=== PATIENT | female | born 1950 | race Hispanic/Latino ===

== ENCOUNTER 2017-12-17 16:25 | Emergency (ER) | payer OTHER ==
[~2017-12-17 16:25] MED LIST: ASPI-1197 PO; ATOR10TA69 PO; DILT240T13 PO; GLIM4TAB3 PO; LISI1TAB11 PO; METO100T14 PO; PANT40TA25 PO; SITA1TAB2 PO; calcium + D PO; isosorbide PO
[2017-12-17] MEDS ORDERED: ONDANSETRON ODT 4 MG TAB ONE (16:39)
[2017-12-17 17:05] LABS: BASOPHILS % (AUTO) 0.7 % (0.0-5.0); EOSINOPHILS % (AUTO) 2.1 % (0.0-8.0); HEMATOCRIT 40.5 % (36-48); LYMPHOCYTES % (AUTO) 21.2 % (21.0-51.0); MEAN CORPUSCULAR HEMOGLOBIN 30.6 pg (27.0-33.0); MEAN CORPUSCULAR HGB CONC 35.4 g/dL (32.0-36.0); MEAN CORPUSCULAR VOLUME 86.3 fL (79-99); MONOCYTES % (AUTO) 9.2 % (3.0-13.0); NEUTROPHILS % (AUTO) 66.8 % (40.0-77.0); NUCLEATED RED BLOOD CELLS 0.4 % (0.0-0.19); PLATELET COUNT (AUTO) 118 K/uL (130-400); RED BLOOD CELL COUNT(AUTO) 4.69 MIL/uL (4.00-5.50); RED CELL DISTRIBUTION WIDTH 13.2 % (11.0-15.5)
[2017-12-17 17:18] LABS: POTASSIUM 3.5 mmol/L (3.5-5.1)
[2017-12-17 17:24] LABS: ALBUMIN 3.5 g/dL (3.5-5.0); BILIRUBIN,TOTAL 0.6 mg/dL (0.2-1.0)
[2018-03-25] MEDS ORDERED: DULA1.5P SQ (08:32)
== END 2017-12-17 18:13 | disposition home or self-care (01) ==
LOC: EDH 16:25
DX: J10.1 Influenza due to other identified influenza virus with other respiratory manifestations (principal); R42 Dizziness and giddiness; E11.9 Type 2 diabetes mellitus without complications; I10 Essential (primary) hypertension; Z90.49 Acquired absence of other specified parts of digestive tract; Z90.710 Acquired absence of both cervix and uterus
CPT/HCPCS: 36415; 71045; 80053; 85025; 87804

== ENCOUNTER → 2018-02-06 | Outpatient (CLI) | payer OTHER ==
[~2018-02-06] MED LIST changes: +AMLO10TA2 PO; +DULA1.5P SQ; +METO-409 PO; +OLME1TAB42 PO; +TRAM50TA4 PO
== END | disposition home or self-care (01) ==
LOC: RAH 08:31
PROVIDERS: ATTEND Family Medicine
DX: R04.2 Hemoptysis (principal); R63.4 Abnormal weight loss; M47.895 Other spondylosis, thoracolumbar region
CPT/HCPCS: 71046

== ENCOUNTER → 2018-03-09 | Outpatient (CLI) | payer OTHER ==
[2018-03-09 11:52] LABS: CREATININE 0.7 mg/dL (0.5-1.5); POTASSIUM 4.1 mmol/L (3.5-5.1)
== END | disposition home or self-care (01) ==
LOC: LAB 11:05
PROVIDERS: ATTEND Family Medicine
DX: I11.9 Hypertensive heart disease without heart failure (principal)
CPT/HCPCS: 36415; 80048

== ENCOUNTER → 2018-03-11 | Outpatient (CLI) | payer OTHER ==
[~2018-03-11] MED LIST changes: +IOPAMIDOL-370 75 ML VIAL IV ONE
== END | disposition home or self-care (01) ==
LOC: OIH 07:52
PROVIDERS: ATTEND Family Medicine
DX: J84.10 Pulmonary fibrosis, unspecified (principal); R63.4 Abnormal weight loss; R04.2 Hemoptysis
CPT/HCPCS: 71260; Q9967

== ENCOUNTER → 2018-03-17 | Outpatient (CLI) | payer OTHER ==
[~2018-03-17] MED LIST changes: -IOPAMIDOL-370 75 ML VIAL IV ONE
== END | disposition home or self-care (01) ==
LOC: RAH 06:50
PROVIDERS: ATTEND Internal Medicine Gastroenterology
DX: R10.10 Upper abdominal pain, unspecified (principal); R63.4 Abnormal weight loss; Z90.49 Acquired absence of other specified parts of digestive tract
CPT/HCPCS: 76700

== ENCOUNTER 2018-03-25 07:34 | Day surgery (SDC) | payer OTHER ==
[~2018-03-25] VITALS: Ht 157.5 cm; Wt 56.3 kg
[~2018-03-25 07:34] MED LIST changes: -AMLO10TA2 PO; -DULA1.5P SQ; -METO-409 PO; -OLME1TAB42 PO; -TRAM50TA4 PO
[2018-03-25] MEDS ORDERED: METO-409 PO (08:26)
[2018-03-25] MEDS ORDERED: AMLO10TA2 PO (08:32)
[2018-03-25] MEDS ORDERED: OLME1TAB42 PO (08:32)
[2018-03-25] MEDS ORDERED: DULA1.5P SQ ×2 (08:32)
[2018-03-25] MEDS ORDERED: TRAM50TA4 PO (08:32)
== END 2018-03-25 09:50 | disposition home or self-care (01) ==
LOC: DAH 07:34 → ENDO 07:34
PROVIDERS: ATTEND Internal Medicine Gastroenterology
DX: K29.50 Unspecified chronic gastritis without bleeding (principal); K31.7 Polyp of stomach and duodenum; K31.9 Disease of stomach and duodenum, unspecified; K21.9 Gastro-esophageal reflux disease without esophagitis; E11.9 Type 2 diabetes mellitus without complications; I42.9 Cardiomyopathy, unspecified; I10 Essential (primary) hypertension; Z87.19 Personal history of other diseases of the digestive system; Z79.82 Long term (current) use of aspirin; Z79.899 Other long term (current) drug therapy
CPT/HCPCS: 43239; 43251; 43259; 82948 ×2; 88305; 88312; 93005; A4606; 43231

== ENCOUNTER 2018-10-13 07:55 | Day surgery (SDC) | payer OTHER ==
[2018-10-09 12:52] VITALS: BP 136/64
[2018-10-09 12:58] LABS: BASOPHILS % (AUTO) 0.5 % (0.0-5.0); EOSINOPHILS % (AUTO) 1.6 % (0.0-8.0); HEMATOCRIT 37.8 % (36-48); LYMPHOCYTES % (AUTO) 21.1 % (21.0-51.0); MEAN CORPUSCULAR HEMOGLOBIN 29.9 pg (27.0-33.0); MEAN CORPUSCULAR HGB CONC 35.5 g/dL (32.0-36.0); MEAN CORPUSCULAR VOLUME 84.2 fL (79-99); MONOCYTES % (AUTO) 5.8 % (3.0-13.0); NUCLEATED RED BLOOD CELLS 0.1 % (0.0-0.19); PLATELET COUNT (AUTO) 226 K/uL (130-400); RED BLOOD CELL COUNT(AUTO) 4.48 MIL/uL (4.00-5.50); RED CELL DISTRIBUTION WIDTH 14.4 % (11.0-15.5); WHITE BLOOD COUNT (AUTO) 5.9 K/uL (4.8-10.8)
[2018-10-09 13:06] LABS: APPEARANCE,URINE Clear (CLEAR); BILIRUBIN,URINE Negative (NEGATIVE); COLOR,URINE Yellow (YELLOW); GLUCOSE, URINE (UA) Negative (NEGATIVE); KETONES,URINE Negative (NEGATIVE); LEUKOCYTE ESTERASE ,URINE Moderate (NEGATIVE); NITRATE,URINE Negative (NEGATIVE); OCCULT BLOOD,URINE Negative (NEGATIVE); PROTEIN,URINE Negative (NEGATIVE); UROBILINOGEN,URINE 0.2 mg/dL (0.2-1.0)
[2018-10-09 13:12] LABS: CREATININE 0.9 mg/dL (0.5-1.5); POTASSIUM 3.5 mmol/L (3.5-5.1)
[2018-10-09 13:16] LABS: INR 0.95 (0.85-1.15); PARTIAL THROMBOPLASTIN TIME 27.5 SEC (26.3-35.5)
[2018-10-09 13:19] LABS: BACTERIA,URINE Few /HPF (None Seen); RBC,URINE 0-1 /HPF (0-1)
[2018-10-13] VITALS (10 sets, daily range): BP systolic 135–168; BP diastolic 50–71
[~2018-10-13] VITALS: Ht 154.9 cm; Wt 56.7 kg
[~2018-10-13 07:55] MED LIST changes: +AMLO10TA6 PO; -DILT240T13 PO; +DULA1.5P SQ; +DiphenhydrAMINE HCL 50 MG/ML VIAL IV SCH; -GLIM4TAB3 PO; +INSU100I21 SQ; -LISI1TAB11 PO; +METHYLPREDNISOLONE SOD SUCC 125MG/2ML VIAL IVP SCH; +METO-409 PO; -METO100T14 PO; +OLME1TAB44 PO; +RANO500T3 PO; -calcium + D PO; -isosorbide PO
[2018-10-13] MEDS ORDERED: SODIUM CHLORIDE 0.9% 1000ML 1,000 ML IV SCH ×2 (08:00→12:15)
[2018-10-13] MEDS ORDERED: SODIUM BICARB 50MEQ 50ML VIAL ONE (08:49)
[2018-10-13] MEDS ORDERED: LIDOCAINE HCL 2% 20ML ONE (08:50)
[2018-10-13] MEDS ORDERED: HEPARIN SODIUM 1000UNIT/ML 10ML VIAL ONE (08:50)
[2018-10-13] MEDS ORDERED: IOHEXOL 350 MG/ML 100ML INFUS..BTL IV ONE (08:50)
[2018-10-13] MEDS ORDERED: NITROGLYCERIN 5 MG/ML 10 ML VIAL IV ONE (08:50)
[2018-10-13] MEDS ORDERED: IOHEXOL-350 50ML VIAL IV ONE (08:50)
[2018-10-13] MEDS ORDERED: INSULIN HUMULIN R 100 UNIT/ML 3ML ONE (08:53)
[2018-10-13] MEDS ORDERED: INSULIN HUMULIN R 100 UNIT/ML 3ML SQ SCH ×2 (11:30→16:30)
[2018-10-13] MEDS ORDERED: MEPERIDINE-PF 25 MG/ML SYG ONE (11:44)
[2018-10-13] MEDS ORDERED: MIDAZOLAM HCL 1 MG/ML 2ML VIAL ONE (11:45)
[2018-10-13] MEDS ORDERED: GLUCAGON 1MG KIT 1 MG ML IM PRN (12:15)
[2018-10-13] MEDS ORDERED: ACETAMINOPHEN-CODEINE 300/30MG TAB PO PRN ×2 (12:15)
[2018-10-13] MEDS ORDERED: DEXTROSE 50%-WATER 50 ML DISP.SYRIN IV PRN (12:15)
== END 2018-10-13 17:30 | disposition home or self-care (01) ==
LOC: DAH 07:55
PROVIDERS: ATTEND Internal Medicine Cardiovascular Disease
DX: I25.118 Atherosclerotic heart disease of native coronary artery with other forms of angina pectoris (principal); I42.9 Cardiomyopathy, unspecified; Z88.8 Allergy status to other drugs, medicaments and biological substances; E11.51 Type 2 diabetes mellitus with diabetic peripheral angiopathy without gangrene; K21.9 Gastro-esophageal reflux disease without esophagitis; I10 Essential (primary) hypertension; Z79.899 Other long term (current) drug therapy; Z79.84 Long term (current) use of oral hypoglycemic drugs; E78.5 Hyperlipidemia, unspecified; Z90.710 Acquired absence of both cervix and uterus; Z90.49 Acquired absence of other specified parts of digestive tract; I21.3 ST elevation (STEMI) myocardial infarction of unspecified site
CPT/HCPCS: 36415; 71045; 80048; 81001; 82948 ×3; 85025; 85610; 85730; 93005; 93458; A4606; C1760; C1894 ×2; J1200; J1644; J1815; J2175; J2250; J2930; J3490 ×3; J7030; Q9965; Q9967 ×2; 99156; 99157

== ENCOUNTER → 2020-01-26 | Outpatient (CLI) | payer OTHER ==
[~2020-01-26] MED LIST changes: -AMLO10TA6 PO; +AMLO10TA7 PO; +DOXY100C2 PO; -DiphenhydrAMINE HCL 50 MG/ML VIAL IV SCH; +LOSA25TA41 PO; +LOSA50TA64 PO; -METHYLPREDNISOLONE SOD SUCC 125MG/2ML VIAL IVP SCH; -OLME1TAB44 PO; +OLME1TAB86 PO; +ONDA4TAB10 PO; +POLY17PO4 PO; +TIZA4TAB5 PO; +TRAM50TA4 PO
== END | disposition home or self-care (01) ==
LOC: SHCH 12:30
PROVIDERS: ATTEND Internal Medicine Cardiovascular Disease
DX: I72.4 Aneurysm of artery of lower extremity (principal)
CPT/HCPCS: 76936

== ENCOUNTER 2020-04-18 12:21 | Emergency (ER) | payer OTHER | END 2020-04-18 12:33 | disposition left against medical advice (07) | LOC: EDH 12:21 | DX: R06.02 Shortness of breath (principal); M19.90 Unspecified osteoarthritis, unspecified site; J45.909 Unspecified asthma, uncomplicated; E11.9 Type 2 diabetes mellitus without complications; K21.9 Gastro-esophageal reflux disease without esophagitis; E78.5 Hyperlipidemia, unspecified; Z72.0 Tobacco use; Z91.041 Radiographic dye allergy status ==

== ENCOUNTER 2020-06-27 22:23 | Inpatient (IN) | payer OTHER ==
[~2020-06-27] VITALS: Ht 152.4 cm; Wt 54.5 kg
[~2020-06-27 22:23] MED LIST changes: -DEXA6TAB PO
[2020-06-27 22:48] LABS: ABG BASE EXCESS -10.7 mmol/L (-2.0-3.0); ABG HCO3 18.5 mmol/L (21.0-28.0); ABG OXYGEN SATURATION 94.4 % (95.0-99.0); ABG PCO2 54 mmHg (32-45)
[2020-06-27 23:04] LABS: BASOPHILS % (AUTO) 0.1 % (0.0-5.0); HEMATOCRIT 32.7 % (36-48); LYMPHOCYTES % (AUTO) 7.4 % (21.0-51.0); MONOCYTES % (AUTO) 0.9 % (3.0-13.0); NEUTROPHILS % (AUTO) 90.9 % (40.0-77.0); NUCLEATED RED BLOOD CELLS 0.2 % (0.0-0.19); PLATELET COUNT (AUTO) 333 K/uL (130-400); RED BLOOD CELL COUNT(AUTO) 3.48 MIL/uL (4.00-5.50); RED CELL DISTRIBUTION WIDTH 16.3 % (11.0-15.5); WHITE BLOOD COUNT (AUTO) 12.9 K/uL (4.8-10.8)
[2020-06-27 23:16] LABS: INR 0.99 (0.85-1.15); PARTIAL THROMBOPLASTIN TIME 24.8 SEC (26.3-35.5); PROTHROMBIN TIME 10.7 SEC (9.6-11.6)
[2020-06-27 23:21] LABS: ALBUMIN 3.2 g/dL (3.5-5.0); BILIRUBIN,TOTAL 0.4 mg/dL (0.2-1.0); CREATININE 1.5 mg/dL (0.5-1.5); POTASSIUM 4.9 mmol/L (3.5-5.1); TOTAL PROTEIN, SERUM 6.5 g/dL (6.0-8.3)
[2020-06-28] VITALS (7 sets, daily range): BP systolic 127–183; BP diastolic 52–115
[2020-06-28] MEDS ORDERED: GUAIFENESIN-DM 200/20 MG 10 ML PO PRN (03:45)
[2020-06-28] MEDS ORDERED: MAGNESIUM 2GM PREMIX 50ML 50 ML IV PRN (03:45)
[2020-06-28] MEDS ORDERED: DIPHENHYDRAMINE HCL 25 MG CAPSULE PO PRN (03:45)
[2020-06-28] MEDS: METHYLPREDNISOLONE SOD SUCC 125MG/2ML VIAL IV SCH ×3 (03:45→21:38)
[2020-06-28] MEDS ORDERED: MAG HYDROX/AL HYDROX/SIMETH ES 30 ML SUSP UDCUP PO PRN (03:45)
[2020-06-28] MEDS ORDERED: DiphenhydrAMINE HCL 50 MG/ML VIAL IV PRN (03:45)
[2020-06-28] MEDS ORDERED: DEXTROSE 50%-WATER 50 ML DISP.SYRIN IV PRN (03:45)
[2020-06-28] MEDS ORDERED: ONDANSETRON HCL 4 MG/2 ML VIAL IV PRN (03:45)
[2020-06-28] MEDS ORDERED: MORPHINE SULFATE 4 MG/1ML SYG IV PRN (03:45)
[2020-06-28] MEDS ORDERED: POTASSIUM CHLORIDE 10% ELIXIR 20 MEQ/15 ML UDCUP PO PRN (03:45)
[2020-06-28] MEDS ORDERED: LACTULOSE 20 GM/30 ML UDCUP PO PRN (03:45)
[2020-06-28] MEDS ORDERED: AZITHROMYCIN 500MG+NS 250ML 250 ML IV SCH (03:45)
[2020-06-28] MEDS ORDERED: ACETAMINOPHEN 325 MG TAB PO PRN ×2 (03:45)
[2020-06-28] MEDS ORDERED: POTASSIUM CHLORIDE 20MEQ/100ML 100 ML IV PRN (03:45)
[2020-06-28] MEDS ORDERED: FUROSEMIDE 10 MG/ML 4ML VIAL IVP PRN (03:45)
[2020-06-28] MEDS ORDERED: ACETAMINOPHEN-CODEINE 300/30MG TAB PO PRN (03:45)
[2020-06-28] MEDS ORDERED: LIDOCAINE HCL-MPF 1% 2ML VIAL IV PRN (03:45)
[2020-06-28] MEDS ORDERED: NITROGLYCERIN 0.4 MG SL TAB SL PRN (03:45)
[2020-06-28] MEDS ORDERED: MORPHINE SULFATE 2 MG/ML 1ML SYG IV PRN (03:45)
[2020-06-28] MEDS ORDERED: GLUCAGON 1MG KIT 1 MG ML IM PRN (03:45)
[2020-06-28] MEDS ORDERED: ALBUTEROL SULFATE 0.083% 2.5 MG/3 ML INH IH SCH (06:00)
[2020-06-28] MEDS ORDERED: IPRATROPIUM 0.5 MG/2.5 ML INH IH SCH (06:00)
[2020-06-28] MEDS: SODIUM CHLORIDE 0.9% 1000ML 1,000 ML IV SCH ×2 (06:00→23:45)
[2020-06-28] MEDS: INSULIN HUMULIN R 100 UNIT/ML 3ML SQ SCH ×5 (06:51→21:00)
--- NOTE | 2020-06-28 07:10 | NUR ---
PT RECEIVED LYING IN BED WITH INCREASED ANXIETY, TACHYPNEIC, BELLYING BREATHING. VERBALIZING "I CAN'T BREATHE WITH THIS THING (BI-PAP) ON MY FACE. I WANT TO TAKE IT OFF." THE RISK VERSUS BENEFITS OF BI-PAP USE EXPLAINED TO PATIENT. PATIENT STATED, "I JUST WANT TO TAKE IT OFF AND GO HOME. I DON'T WANT TO BE HERE. I FEEL BETTER NOW." O2 SAT 100% ON 60% BI-PAP, HEART RATE 116. REASSURED PATIENT, SOOTHING TALK AND HAND MASSAGE USED TO DECREASE PT'S ANXIETY AT THIS TIME. WILL CONTINUE TO MONITOR. SAFETY MEASURES IN PLACE. Addendum: 06/28/20 at 1433 by ANGEL JACOBSON RN RN Amended: Links added.
--- NOTE | 2020-06-28 07:42 | NUR ---
PT CONTINUED TO REQUEST REMOVAL OF BI-PAP AND TO BE DISCHARGED HOME. RISK OF REMOVAL OR REFUSAL OF TREATMENT REINFORCED WITH PATIENT. PT STATED, "I STILL WOULD LIKE TO GO HOME. I FEEL OKAY NOW. I WILL STAY HERE FOR NOW." WILL CONTINUE TO MONITOR.
--- NOTE | 2020-06-28 08:45 | NUR ---
PT NOTED WITH SOB AT REST, CRYING, COMPLAINS OF "HURTING, BUT MORE SO UNCOMFORTABLE." SBP 180's. MORPHINE 2 MG ADMINISTERED SLOW IVP. PATIENT CONTINUES REQUESTING TO GO HOME. DISEASE PROCESS EXPLAINED TO PATIENT IN DETAIL. NURSE ASKED PATIENT HER WISHES IF PATIENT'S HEART WAS TO STOP BEATING OR IF PATIENT WAS TO STOP BREATHING. PATIENT STATED, "I DON'T WANT ANYTHING DONE FOR ME. I JUST WANT TO GO HOME." NURSE ASKED PATIENT IF SHE WOULD LIKE TO SIGN A DO NOT RESUSCITATE FORM. PATIENT STATED, "NO, I JUST WANT TO GO HOME." PT'S DAUGHTER, KHOI TOBIAS, CALLED PATIENT'S CELLPHONE WHILE NURSE AT BEDSIDE. NURSE INFORMED KHOI OF PATIENT'S CURRENT CONDITION WITH PATIENT'S PERMISSION AND STRONGLY ADVISED KHOI THAT A LENGTHY PHONE CONVERSATION WAS NOT IN THE BEST INTEREST OF THE PATIENT'S CONDITION. PATIENT CONTINUED TALKING TO DAUGHTER VIA PHONE. WILL CONTINUE TO MONITOR. SAFETY MEASURES IN PLACE.
[2020-06-28] MEDS ORDERED: ENOXAPARIN SODIUM 40 MG/0.4 ML SYRINGE SQ SCH (09:00)
[2020-06-28] MEDS ORDERED: CEFTRIAXONE SODIUM 500 MG VIAL IV SCH (09:00)
[2020-06-28] MEDS ORDERED: CEFTRIAXONE SODIUM 1 GM IV SCH ×2 (09:57→11:30)
[2020-06-28] MEDS: FAMOTIDINE 20MG TAB 20 MG TAB PO SCH (10:00)
[2020-06-28] MEDS ORDERED: IPRATROPIUM/ALBUTEROL SULFATE 3 ML SOLUTION IH SCH (14:00)
[2020-06-28] MEDS: ALBUTEROL INHALER 90MCG/INH IH SCH ×2 (14:47→17:51)
[2020-06-28] MEDS: LEVOFLOXACIN 500 MG/D5W 100 ML 100 ML IV SCH (14:47)
[2020-06-28 16:57] LABS: TROPONIN I 2.03 ng/mL (0.00-0.06)
--- NOTE | 2020-06-28 17:01 | NUR ---
PATIENT'S TROPONIN 2.03, ERIN HODGE NP NOTIFIED VIA. NEW ORDERS RECEIVED: 12 LEAD EKG, CONSULT HEART CLINIC, 2D ECHO.
[2020-06-28 17:39] LABS: CREATININE 1.2 mg/dL (0.5-1.5)
--- NOTE | 2020-06-28 17:45 | NUR ---
ERIN HODGE NP NOTIFIED OF PT's ABG RESULTS. NEW ORDER RECEIVED: GIVE 2 AMPS BICARB IVP PUSH.
[2020-06-28 17:46] LABS: ABG BASE EXCESS -11.7 mmol/L (-2.0-3.0); ABG HCO3 16.2 mmol/L (21.0-28.0); ABG OXYGEN SATURATION 96.5 % (95.0-99.0); ABG PCO2 44 mmHg (32-45)
[2020-06-28] MEDS: ZOSYN 3.375GM+NS 50ML 50 ML IV SCH (17:50)
--- NOTE | 2020-06-28 18:20 | NUR ---
ERIN HODGE, TECHNICIAN INVENTORY SPECIALIST NOTIFIED OF PT's EKG RESULTS, STATED, "THAT'S DECENT ENOUGH. PLEASE MAKE SURE SHE GETS THE INHALERS, AND I'M GOING TO PUT HER ON BICARB TABLETS."
--- NOTE | 2020-06-28 18:46 | NUR ---
PROVIDER, ROLO HODGE NOTIFIED OF PT'S BLOOD PRESSURE AND HEART RATE, NEW ORDER FOR METOPROLOL 50 MG BID.
[2020-06-28] MEDS ORDERED: SODIUM BICARB 50MEQ 50ML VIAL IV SCH (19:15)
[2020-06-28] MEDS ORDERED: METOPROLOL TARTRATE 50 MG TAB PO SCH ×2 (20:00→21:00)
--- NOTE | 2020-06-28 20:40 | NUR ---
SPoke to DR. Rahul Zapata regarding new consult. NEw orders were placed. Informed him regarding of elevated troponin and that patient sees Dr Love for congestive heart failure
[2020-06-28] MEDS: ENOXAPARIN SODIUM 60 MG/0.6 ML SQ SCH ×2 (21:00→22:44)
[2020-06-28] MEDS: NITROGLYCERIN 1GM/1 INCH PACKET TD SCH (21:37)
[2020-06-28] MEDS: ZOLPIDEM TARTRATE 5 MG TAB PO PRN (21:37)
[2020-06-28] MEDS: METOPROLOL TARTRATE 50 MG TAB PO SCH (21:38)
[2020-06-28] MEDS: SODIUM BICARBONATE 650 MG TAB PO SCH (21:38)
[2020-06-28] MEDS: INSULIN GLARGINE 100 UNITS/ML 10 ML VIAL SQ SCH (21:42)
[2020-06-28] MEDS ORDERED: ASPIRIN 81MG TAB.CHEW PO SCH (21:45)
--- NOTE | 2020-06-28 22:00 | NUR ---
Troponin level of 2.45 similar to previous result. Mattress Stripper MD Rahul Zapata is aware.
[2020-06-28 22:50] LABS: TROPONIN I 2.45 ng/mL (0.00-0.06)
[2020-06-29] MEDS: ALBUTEROL INHALER 90MCG/INH IH SCH ×4 (00:13→18:28)
[2020-06-29] MEDS: NITROGLYCERIN 1GM/1 INCH PACKET TD SCH ×5 (01:00→18:28)
[2020-06-29 03:37] VITALS: BP 165/93
[2020-06-29] MEDS: METHYLPREDNISOLONE SOD SUCC 125MG/2ML VIAL IV SCH ×3 (05:19→20:14)
[2020-06-29] MEDS: ZOSYN 3.375GM+NS 50ML 50 ML IV SCH ×2 (05:19→17:02)
[2020-06-29 05:53] LABS: CREATINE KINASE, TOTAL 122 U/L (21-232); MYOGLOBIN 92 ng/mL (10-92); PHOSPHORUS 4.1 mg/dL (2.5-4.9)
[2020-06-29 06:03] LABS: TROPONIN I 3.32 ng/mL (0.00-0.06)
[2020-06-29] MEDS: INSULIN HUMULIN R 100 UNIT/ML 3ML SQ SCH ×4 (06:21→22:05)
--- NOTE | 2020-06-29 06:22 | NUR ---
Paged Dr. Zapata regarding troponin lab results. Pending call back
[2020-06-29 08:00] VITALS: BP 163/88
[2020-06-29 08:30] LABS: ABG BASE EXCESS 2.7 mmol/L (-2.0-3.0); ABG HCO3 27.3 mmol/L (21.0-28.0); ABG PCO2 42 mmHg (32-45)
[2020-06-29] MEDS ORDERED: CEFTRIAXONE SODIUM 1 GM IV SCH (09:00)
--- NOTE | 2020-06-29 09:06 | NUR ---
CHART CHECK COMPLETED. Pt IS A 69 Y.O. FEMALE ADMITTED SECONDARY TO COPD EXACERBATION, HYPOXIA. Pt HAS A PAST MEDICAL HISTORY SIGNIFICANT FOR BREAST CA ON CHEMO, HTN, DM, RENAL INSUFFICIENCY, METABOLIC RESPIRATORY ACIDOSIS, IMMUNOCOMPROMISED STATUS, HISTORY OF COVID 2 MONTHS AGO, LUPUS, DEMENTIA, RA. Pt CURRENTLY ON REGULAR TEXTURE,THIN LIQUID DIET (CONSISTENT CARB). Pt CURRENTLY ON NON-REBREATHER. PLEASE REQUEST FORMAL SKILLED SPEECH/SWALLOW EVALUATION IF Pt PRESENTS WITH +S/S OF ASPIRATION SUCH COUGH RESPONSE, THROAT CLEAR, OR WET VOCAL QUALITY DURING P.O. PLEASE CONSIDER NPO IF RESPIRATORY STATUS DECLINES. Addendum: 06/29/20 at 0914 by DAR CULLEN, [facility] Amended: Links added.
[2020-06-29] MEDS: METOPROLOL TARTRATE 50 MG TAB PO SCH ×2 (09:47→22:06)
[2020-06-29] MEDS: FAMOTIDINE 20MG TAB 20 MG TAB PO SCH (09:47)
[2020-06-29] MEDS: SODIUM BICARBONATE 650 MG TAB PO SCH ×3 (09:47→22:06)
[2020-06-29] MEDS: LISINOPRIL 10 MG TABLET PO SCH (09:47)
[2020-06-29] MEDS: ENOXAPARIN SODIUM 60 MG/0.6 ML SQ SCH ×2 (09:48→22:06)
--- NOTE | 2020-06-29 10:11 | NUR ---
PT RECEIVED LYING IN BED TACHYPNEIC, BELLYING BREATHING, SOB, COARSE SOUNDING. O2 SAT 95 ON 15L VENTI-MASK, HEART RATE 121. ERIN HODGE NP ROUNDING AND UPDATED ON PT'S STATUS AND INCREASING TROPONIN, NEW ORDER RECEIVED FOR LASIX 40 IVP X1. WILL CONTINUE TO MONITOR. SAFETY MEASURES IN PLACE.
[2020-06-29] MEDS ORDERED: FUROSEMIDE 10 MG/ML 4ML VIAL IV SCH (10:15)
[2020-06-29 10:26] LABS: ALANINE AMINOTRANSFERASE 32 U/L (12-78); ALBUMIN 3.1 g/dL (3.5-5.0); ASPARTATE AMINOTRANSFERASE 31 U/L (10-37); BILIRUBIN,TOTAL 0.3 mg/dL (0.2-1.0); CARBON DIOXIDE 27 mmol/L (21-32); CHLORIDE 111 mmol/L (101-111); GLOMERULAR FILTR. RATE CALC 58 mL/min (>60); GLUCOSE,RANDOM 166 mg/dL (70-105); POTASSIUM 4.3 mmol/L (3.5-5.1); SODIUM SERUM 147 mmol/L (136-145); UREA NITROGEN, BLOOD 33 mg/dL (7-18)
[2020-06-29 10:46] LABS: BASOPHILS % (AUTO) 0.1 % (0.0-5.0); HEMATOCRIT 31.9 % (36-48); LYMPHOCYTES % (AUTO) 3.7 % (21.0-51.0); MEAN CORPUSCULAR HEMOGLOBIN 31.1 pg (27.0-33.0); MEAN CORPUSCULAR HGB CONC 32.9 g/dL (32.0-36.0); MEAN CORPUSCULAR VOLUME 94.4 fL (79-99); NEUTROPHILS % (AUTO) 89.9 % (40.0-77.0); PLATELET COUNT (AUTO) 228 K/uL (130-400); RED BLOOD CELL COUNT(AUTO) 3.38 MIL/uL (4.00-5.50); RED CELL DISTRIBUTION WIDTH 16.8 % (11.0-15.5); WHITE BLOOD COUNT (AUTO) 11.5 K/uL (4.8-10.8)
[2020-06-29 10:49] LABS: B-TYPE NATRIURETIC PEPTIDE 654 pg/mL (0-100)
--- NOTE | 2020-06-29 11:19 | NUR ---
DC PLAN PATIENT IN COVID UNIT ON BIPAP. CALLED DAUGHTER PERSON TO NOTIFY EVERARDO. PATIENT LIVES WITH SPOUSE AND DAUGHTER. USES A WALKER AT HOME. WAS GOING TO GET PROVIDER ON FRIDAY HAD NOT STARTED. NO OTHER SERVICES OR EQUIPMENT. ASKED FOR [facility]OS FOR IF PATIENT NEEDS FOR DISCHARGE. GAVE PERMISSION SAID THAT THEY HAD BEEN TRYING TO SET UP AT HOME. BUT BACK AND FORTH DR. TOBIAS AND CARDIO. Addendum: 06/29/20 at 1121 by TAMEKA COTTON RN CM Amended: Links added.
[2020-06-29 11:30] VITALS: BP 174/99
[2020-06-29 15:30] VITALS: BP 146/74
[2020-06-29 19:00] VITALS: BP 141/114
[2020-06-29] MEDS ORDERED: SODIUM CHLORIDE 0.9% 1000ML 1,000 ML IV ONE (21:21)
[2020-06-29] MEDS: INSULIN GLARGINE 100 UNITS/ML 10 ML VIAL SQ SCH (22:04)
[2020-06-29] MEDS: FUROSEMIDE 10 MG/ML 2ML VIAL IV SCH (22:06)
[2020-06-29 23:00] VITALS: BP 140/61
[2020-06-30] MEDS: NITROGLYCERIN 1GM/1 INCH PACKET TD SCH ×4 (00:07→19:00)
[2020-06-30] MEDS: ALBUTEROL INHALER 90MCG/INH IH SCH ×5 (00:07→22:00)
[2020-06-30 03:49] VITALS: BP 137/67
[2020-06-30] MEDS: METHYLPREDNISOLONE SOD SUCC 125MG/2ML VIAL IV SCH ×3 (03:51→20:30)
[2020-06-30 04:41] LABS: ABG BASE EXCESS 8.7 mmol/L (-2.0-3.0); ABG HCO3 32.2 mmol/L (21.0-28.0); ABG OXYGEN SATURATION 97.8 % (95.0-99.0); ABG PCO2 40 mmHg (32-45)
[2020-06-30 04:57] LABS: MAGNESIUM 1.5 mg/dL (1.80-2.40); PHOSPHORUS 3.6 mg/dL (2.5-4.9)
[2020-06-30] MEDS: INSULIN HUMULIN R 100 UNIT/ML 3ML SQ SCH ×4 (06:42→22:02)
[2020-06-30 07:00] VITALS: BP 138/68
[2020-06-30] MEDS ORDERED: ZOSYN 3.375GM+NS 50ML 50 ML IV SCH (08:00)
[2020-06-30] MEDS: SODIUM BICARBONATE 650 MG TAB PO SCH ×3 (08:56→21:58)
[2020-06-30] MEDS: METOPROLOL TARTRATE 50 MG TAB PO SCH ×2 (08:57→21:58)
[2020-06-30] MEDS: FAMOTIDINE 20MG TAB 20 MG TAB PO SCH (08:57)
[2020-06-30] MEDS: LISINOPRIL 10 MG TABLET PO SCH (08:57)
[2020-06-30] MEDS: FUROSEMIDE 10 MG/ML 2ML VIAL IV SCH ×2 (08:57→21:59)
[2020-06-30] MEDS: ENOXAPARIN SODIUM 60 MG/0.6 ML SQ SCH ×2 (08:58→22:00)
[2020-06-30 11:00] VITALS: BP 130/66
[2020-06-30] MEDS: MAGNESIUM 2GM PREMIX 50ML 50 ML IV PRN (11:05)
--- NOTE | 2020-06-30 11:05 | NUR ---
PT RESTING QUIETLY IN BED, AAOx4. ABLE TO MAKE NEEDS KNOWN. DENIED PAIN/DISCOMFORT. STATED, "I FEEL MUCH BETTER." RESPIRATIONS EVEN AND UNLABORED AT REST. O2 SAT 98% ON 50% VENTI-MASK, HEART RATE 76. KAREN JOSEPH NP ROUNDED AND MADE AWARE OF PT'S MAGNESIUM LEVEL OF 1.5, NEW ORDER RECEIVED FOR MAGNESIUM PROTOCOL. MAGNESIUM SULFATE 2GM INFUSING ORDERED, REPEAT LEVEL IN AM. WILL CONTINUE TO MONITOR. SAFETY MEASURES IN PLACE.
[2020-06-30] MEDS: LEVOFLOXACIN 500 MG/D5W 100 ML 100 ML IV SCH (13:17)
[2020-06-30 16:00] VITALS: BP 141/73
[2020-06-30 20:29] VITALS: BP 140/91
[2020-06-30] MEDS: INSULIN GLARGINE 100 UNITS/ML 10 ML VIAL SQ SCH (22:03)
[2020-07-01 00:09] VITALS: BP 142/87
[2020-07-01] MEDS: NITROGLYCERIN 1GM/1 INCH PACKET TD SCH ×5 (00:09→23:22)
[2020-07-01] MEDS: METHYLPREDNISOLONE SOD SUCC 125MG/2ML VIAL IV SCH ×3 (04:12→21:14)
[2020-07-01 04:13] LABS: ABG BASE EXCESS 14.2 mmol/L (-2.0-3.0); ABG HCO3 37.4 mmol/L (21.0-28.0); ABG OXYGEN SATURATION 95.9 % (95.0-99.0); ABG PCO2 40 mmHg (32-45)
[2020-07-01 05:02] VITALS: BP 133/70
[2020-07-01] MEDS: ALBUTEROL INHALER 90MCG/INH IH SCH ×4 (05:04→23:22)
[2020-07-01] MEDS: INSULIN HUMULIN R 100 UNIT/ML 3ML SQ SCH ×4 (05:05→21:16)
[2020-07-01 06:29] LABS: BASOPHILS % (AUTO) 0.1 % (0.0-5.0); HEMATOCRIT 27.9 % (36-48); LYMPHOCYTES % (AUTO) 2.5 % (21.0-51.0); MEAN CORPUSCULAR HEMOGLOBIN 31.2 pg (27.0-33.0); MEAN CORPUSCULAR HGB CONC 34.8 g/dL (32.0-36.0); MEAN CORPUSCULAR VOLUME 89.7 fL (79-99); MONOCYTES % (AUTO) 4.7 % (3.0-13.0); NEUTROPHILS % (AUTO) 90.4 % (40.0-77.0); PLATELET COUNT (AUTO) 166 K/uL (130-400); RED BLOOD CELL COUNT(AUTO) 3.11 MIL/uL (4.00-5.50); RED CELL DISTRIBUTION WIDTH 15.3 % (11.0-15.5); WHITE BLOOD COUNT (AUTO) 9.5 K/uL (4.8-10.8)
[2020-07-01 06:49] LABS: ALBUMIN 2.6 g/dL (3.5-5.0); BILIRUBIN,TOTAL 0.8 mg/dL (0.2-1.0); CREATININE 0.7 mg/dL (0.5-1.5); MAGNESIUM 1.9 mg/dL (1.80-2.40); PHOSPHORUS 3.3 mg/dL (2.5-4.9); POTASSIUM 3.2 mmol/L (3.5-5.1); TOTAL PROTEIN, SERUM 5.6 g/dL (6.0-8.3)
[2020-07-01 07:55] VITALS: BP 147/62
[2020-07-01] MEDS: POTASSIUM CHLORIDE 20 MEQ ERTAB PO PRN ×3 (08:21→16:27)
[2020-07-01] MEDS: FUROSEMIDE 10 MG/ML 2ML VIAL IV SCH ×2 (08:21→21:14)
[2020-07-01] MEDS: SODIUM BICARBONATE 650 MG TAB PO SCH ×3 (08:22→21:14)
[2020-07-01] MEDS: LISINOPRIL 10 MG TABLET PO SCH (08:22)
[2020-07-01] MEDS: FAMOTIDINE 20MG TAB 20 MG TAB PO SCH (08:22)
[2020-07-01] MEDS: METOPROLOL TARTRATE 50 MG TAB PO SCH ×2 (08:23→21:14)
[2020-07-01] MEDS: ENOXAPARIN SODIUM 60 MG/0.6 ML SQ SCH ×2 (08:23→21:14)
[2020-07-01] MEDS: MAGNESIUM 2GM PREMIX 50ML 50 ML IV PRN (08:24)
[2020-07-01 11:43] VITALS: BP 132/95
[2020-07-01 15:33] VITALS: BP 128/59
[2020-07-01] MEDS: LACTOBACILLUS RHAMNOSUS GG 1 EACH CAP.SPRINK PO SCH ×2 (16:27→21:14)
[2020-07-01 20:00] VITALS: BP 136/63
[2020-07-01] MEDS ORDERED: SODIUM CHLORIDE 0.9% 1000ML 1,000 ML IV ONE (20:26)
[2020-07-01] MEDS: INSULIN GLARGINE 100 UNITS/ML 10 ML VIAL SQ SCH (21:15)
[2020-07-02 00:43] VITALS: BP 125/59
[2020-07-02] MEDS: METHYLPREDNISOLONE SOD SUCC 125MG/2ML VIAL IV SCH ×3 (03:33→21:47)
[2020-07-02 04:45] VITALS: BP 144/66
[2020-07-02] MEDS: ALBUTEROL INHALER 90MCG/INH IH SCH ×3 (04:45→17:12)
--- NOTE | 2020-07-02 04:47 | NUR ---
patient satting 100% on 1l of oxygen. patient placed on room air and states "she feels fine". PATIENT DENIES RESPIRATORY DISTRESS OR SHORTNESS OF BREATH AT THIS TIME.
[2020-07-02 05:43] LABS: HEMATOCRIT 26.6 % (36-48); MEAN CORPUSCULAR HGB CONC 34.6 g/dL (32.0-36.0); MEAN CORPUSCULAR VOLUME 89.6 fL (79-99); RED BLOOD CELL COUNT(AUTO) 2.97 MIL/uL (4.00-5.50); WHITE BLOOD COUNT (AUTO) 10.1 K/uL (4.8-10.8)
[2020-07-02] MEDS: NITROGLYCERIN 1GM/1 INCH PACKET TD SCH ×3 (05:47→17:12)
[2020-07-02] MEDS: INSULIN HUMULIN R 100 UNIT/ML 3ML SQ SCH ×4 (05:47→21:50)
[2020-07-02 06:37] LABS: ALANINE AMINOTRANSFERASE 27 U/L (12-78); ALBUMIN 2.4 g/dL (3.5-5.0); ASPARTATE AMINOTRANSFERASE 25 U/L (10-37); BILIRUBIN,TOTAL 0.7 mg/dL (0.2-1.0); CARBON DIOXIDE 34 mmol/L (21-32); CHLORIDE 106 mmol/L (101-111); CREATININE 0.7 mg/dL (0.5-1.5); GLOMERULAR FILTR. RATE CALC 88 mL/min (>60); GLUCOSE,RANDOM 143 mg/dL (70-105); PHOSPHORUS 3.3 mg/dL (2.5-4.9); POTASSIUM 3.4 mmol/L (3.5-5.1); SODIUM SERUM 146 mmol/L (136-145); TOTAL PROTEIN, SERUM 5.4 g/dL (6.0-8.3); UREA NITROGEN, BLOOD 21 mg/dL (7-18)
[2020-07-02 08:00] VITALS: BP 139/71
[2020-07-02] MEDS: LACTOBACILLUS RHAMNOSUS GG 1 EACH CAP.SPRINK PO SCH ×3 (08:56→21:45)
[2020-07-02] MEDS: METOPROLOL TARTRATE 50 MG TAB PO SCH ×2 (08:57→21:47)
[2020-07-02] MEDS: FUROSEMIDE 10 MG/ML 2ML VIAL IV SCH ×3 (08:57→17:12)
[2020-07-02] MEDS: SODIUM BICARBONATE 650 MG TAB PO SCH ×3 (08:57→21:46)
[2020-07-02] MEDS: FAMOTIDINE 20MG TAB 20 MG TAB PO SCH (08:57)
[2020-07-02] MEDS: LISINOPRIL 10 MG TABLET PO SCH (08:57)
[2020-07-02] MEDS: ENOXAPARIN SODIUM 60 MG/0.6 ML SQ SCH ×2 (08:59→21:46)
[2020-07-02 12:00] VITALS: BP 135/68
[2020-07-02] MEDS: LEVOFLOXACIN 500 MG/D5W 100 ML 100 ML IV SCH (12:37)
[2020-07-02 16:00] VITALS: BP 150/71
--- NOTE | 2020-07-02 17:43 | NUR ---
Nursing note 0700 Patient saturation 87 on room air feeling slightly short of breath patient placed on 2L nasal cannula. Saturation improved to 92%- 95% with SOB resolved. Resting comfortably in bed semi-Rivera position. C diff pending patient had 2 bms this shift semi formed not loose liquid and do not meet criteria for cdiff protocol will continue to monitor and if patient has 3 loose liquid stools in 24hrs will send out to lab as per protocol.
[2020-07-02 20:00] VITALS: BP 152/71
[2020-07-02] MEDS: ZOLPIDEM TARTRATE 5 MG TAB PO PRN (21:46)
[2020-07-02] MEDS: INSULIN GLARGINE 100 UNITS/ML 10 ML VIAL SQ SCH (21:48)
[2020-07-03 01:12] VITALS: BP 150/69
[2020-07-03] MEDS: NITROGLYCERIN 1GM/1 INCH PACKET TD SCH ×4 (01:14→19:00)
[2020-07-03] MEDS: FUROSEMIDE 10 MG/ML 2ML VIAL IV SCH ×4 (01:31→17:19)
[2020-07-03] MEDS: METHYLPREDNISOLONE SOD SUCC 125MG/2ML VIAL IV SCH (03:02)
[2020-07-03 04:00] VITALS: BP 160/69
[2020-07-03] MEDS: INSULIN HUMULIN R 100 UNIT/ML 3ML SQ SCH ×3 (05:37→17:21)
[2020-07-03 05:41] LABS: HEMATOCRIT 26.9 % (36-48); MEAN CORPUSCULAR HEMOGLOBIN 31.4 pg (27.0-33.0); MEAN CORPUSCULAR HGB CONC 34.9 g/dL (32.0-36.0); RED BLOOD CELL COUNT(AUTO) 2.99 MIL/uL (4.00-5.50); RED CELL DISTRIBUTION WIDTH 14.9 % (11.0-15.5)
[2020-07-03 05:59] LABS: CREATININE 0.7 mg/dL (0.5-1.5); MAGNESIUM 1.7 mg/dL (1.80-2.40); PHOSPHORUS 4.2 mg/dL (2.5-4.9); POTASSIUM 3.6 mmol/L (3.5-5.1)
[2020-07-03 08:26] VITALS: BP 139/68
[2020-07-03] MEDS: LISINOPRIL 10 MG TABLET PO SCH (09:24)
[2020-07-03] MEDS: FAMOTIDINE 20MG TAB 20 MG TAB PO SCH (09:24)
[2020-07-03] MEDS: POTASSIUM CHLORIDE 20 MEQ ERTAB PO PRN (09:24)
[2020-07-03] MEDS: ENOXAPARIN SODIUM 60 MG/0.6 ML SQ SCH (09:25)
[2020-07-03] MEDS: SODIUM BICARBONATE 650 MG TAB PO SCH ×2 (09:25→13:36)
[2020-07-03] MEDS: METOPROLOL TARTRATE 50 MG TAB PO SCH (09:25)
[2020-07-03] MEDS: LACTOBACILLUS RHAMNOSUS GG 1 EACH CAP.SPRINK PO SCH ×2 (09:25→13:36)
[2020-07-03] MEDS ORDERED: METHYLPREDNISOLONE SOD SUCC 40MG/ML 1ML ONE (11:15)
[2020-07-03] MEDS: ALBUTEROL INHALER 90MCG/INH IH SCH ×2 (11:57→17:21)
[2020-07-03 12:00] VITALS: BP 127/66
--- NOTE | 2020-07-03 12:15 | NUR ---
SITTING UP IN BED EATING LUNCH. DENIES ANY C/O. CALL LIGHT WITHIN REACH.
[2020-07-03 16:00] VITALS: BP 128/69
--- NOTE | 2020-07-03 17:10 | NUR ---
SITTING UP IN CHAIR A BEDSIDE EATING DINNER W/O C/O. CALL LIGHT WITHIN REACH.
[2020-07-03] MEDS ORDERED: DEXA6TAB PO ×2 (17:30)
--- NOTE | 2020-07-03 18:35 | NUR ---
PORTACATH NEEDLE REMOVED INTACT ORDERED; PORTACATH FLUSHED ORDERED PRIOR TO LOW NEEDLE BEING REMOVED. PT. DENIES ANY C/O. 2X2 GAUZE AND BAND-AID PLACED AFTER REMOVAL. DISCHARGE INSTRUCTIONS GIVEN IN DETAIL, PT. VERBALIZED UNDERSTANDING.
[2020-07-03] MEDS ORDERED: HEPARIN SODIUM/PF 100UNIT/ML 5ML SYRINGE IV SCH (19:15)
[2020-07-04] MEDS ORDERED: PREDNISONE 20 MG TABLET PO SCH (09:00)
== END 2020-07-03 18:35 | disposition home or self-care (01) | DRG 177 ==
LOC: EDH 22:23 → OBSVTOIN 06-28 03:45 → EDHIP 06-28 03:45 → 2AH 06-28 05:30
PROVIDERS: ADMIT Internal Medicine; ATTEND Internal Medicine
PROC: 5A09357 Assistance with Respiratory Ventilation, Less than 24 Consecutive Hours, Continuous Positive Airway Pressure (ICD-10-PCS; principal; 2020-06-28)
DX: U07.1 COVID-19 (principal); J96.01 Acute respiratory failure with hypoxia; J12.89 Other viral pneumonia; J96.02 Acute respiratory failure with hypercapnia; J44.1 Chronic obstructive pulmonary disease with (acute) exacerbation; E87.4 Mixed disorder of acid-base balance; J44.0 Chronic obstructive pulmonary disease with (acute) lower respiratory infection; D89.9 Disorder involving the immune mechanism, unspecified; F03.90 Unspecified dementia, unspecified severity, without behavioral disturbance, psychotic disturbance, mood disturbance, and anxiety; M19.90 Unspecified osteoarthritis, unspecified site; I10 Essential (primary) hypertension; E11.9 Type 2 diabetes mellitus without complications; N28.9 Disorder of kidney and ureter, unspecified; R19.7 Diarrhea, unspecified; Z79.899 Other long term (current) drug therapy; Z85.3 Personal history of malignant neoplasm of breast; Z88.8 Allergy status to other drugs, medicaments and biological substances; Z87.01 Personal history of pneumonia (recurrent); Z86.19 Personal history of other infectious and parasitic diseases; Z79.4 Long term (current) use of insulin; Z79.82 Long term (current) use of aspirin
CPT/HCPCS: 36415; 36600; 71045; 71250; 80048; 80053; 82550; 82803; 82948; 83605; 83735; 83874; 83880; 84100; 84145; 84484; 85025; 85027; 85610; 85730; 86140; 87426; 93005; 93306; 93356; 94660; 94760; 99291; A4606; G0378; J0456; J0696; J1642; J1650; J1815; J1940; J1956; J2543; J2920; J2930; J3475; J3490; J7030; Q0163; U0003

== ENCOUNTER → 2020-06-27 | Outpatient (CLI) | payer OTHER ==
[~2020-06-27] MED LIST changes: +DEXA6TAB PO
== END | disposition home or self-care (01) ==
LOC: RAH 11:46
PROVIDERS: ATTEND Family Medicine
DX: J44.9 Chronic obstructive pulmonary disease, unspecified (principal); M47.814 Spondylosis without myelopathy or radiculopathy, thoracic region
CPT/HCPCS: 71046

== ENCOUNTER 2020-09-16 06:42 | Inpatient (IN) | payer OTHER ==
[~2020-09-16] VITALS: Ht 152.4 cm; Wt 52.5 kg
[2020-09-16] VITALS (10 sets, daily range): BP systolic 134–203; BP diastolic 56–96
[~2020-09-16 06:42] MED LIST changes: +AMLO-258 PO; -AMLO10TA7 PO; +DEXA6TAB PO; -PANT40TA25 PO; +PANT40TA54 PO
[2020-09-16 07:33] LABS: BASOPHILS % (AUTO) 0.5 % (0.0-5.0); EOSINOPHILS % (AUTO) 2.1 % (0.0-8.0); HEMATOCRIT 38.5 % (36-48); LYMPHOCYTES % (AUTO) 22.7 % (21.0-51.0); MEAN CORPUSCULAR HEMOGLOBIN 29.4 pg (27.0-33.0); MEAN CORPUSCULAR HGB CONC 33.5 g/dL (32.0-36.0); MEAN CORPUSCULAR VOLUME 87.7 fL (79-99); MONOCYTES % (AUTO) 4.8 % (3.0-13.0); NEUTROPHILS % (AUTO) 69.3 % (40.0-77.0); PLATELET COUNT (AUTO) 232 K/uL (130-400); RED BLOOD CELL COUNT(AUTO) 4.39 MIL/uL (4.00-5.50); RED CELL DISTRIBUTION WIDTH 13.5 % (11.0-15.5); WHITE BLOOD COUNT (AUTO) 8.5 K/uL (4.8-10.8)
[2020-09-16 07:44] LABS: INR 0.93 (0.85-1.15); PARTIAL THROMBOPLASTIN TIME 24.6 SEC (26.3-35.5); PROTHROMBIN TIME 10.1 SEC (9.6-11.6)
[2020-09-16] MEDS ORDERED: ZOSYN 3.375GM+NS 50ML 50 ML IV ONE (07:45)
[2020-09-16 07:47] LABS: ALBUMIN 3.4 g/dL (3.5-5.0); BILIRUBIN,TOTAL 0.6 mg/dL (0.2-1.0); POTASSIUM 4.8 mmol/L (3.5-5.1); TOTAL PROTEIN, SERUM 7.1 g/dL (6.0-8.3)
[2020-09-16 07:54] LABS: ABG BASE EXCESS -1.3 mmol/L (-2.0-3.0); ABG OXYGEN SATURATION 99.7 % (95.0-99.0); ABG PCO2 54 mmHg (32-45)
[2020-09-16] MEDS ORDERED: VANCOMYCIN 1GM+NS 250ML 250 ML IV ONE (07:56)
[2020-09-16] MEDS ORDERED: MAGNESIUM 2GM PREMIX 50ML 50 ML IV ONE (08:04)
[2020-09-16] MEDS ORDERED: ASPIRIN 325 MG TABLET ONE (09:37)
[2020-09-16] MEDS ORDERED: INSULIN HUMULIN R 100 UNIT/ML 3ML ONE (09:39)
--- NOTE | 2020-09-16 11:00 | NUR ---
RECEIVED FROM ED VIA STRETCHER ACCOMPANIED BY ED STAFF. PT. PLACED BACK ON BIPAP AFTER TRANSFER. BIPAP 12/, 60%, R-18. EXERTIONAL SOB NOTED. PT. ARRIVED WITH RIGHT UPPER CHEST ACCESSED IN ED WITH NS INFUSING AT KVO RATE. FLUSHED IV LINE WITH 10ML NS, GOOD BLOOD RETURN NOTED. COMPLETE ASSESSMENT DONE. CALL LIGHT WITHIN REACH. BED LOW, SIDE RAILS UP X3. DAUGHTER AT BEDSIDE.
[2020-09-16] MEDS ORDERED: LACTULOSE 20 GM/30 ML UDCUP PO PRN (12:45)
[2020-09-16] MEDS ORDERED: ONDANSETRON HCL 4 MG/2 ML VIAL IVP PRN (12:45)
[2020-09-16] MEDS ORDERED: GLUCAGON 1MG KIT 1 MG ML IM PRN (12:45)
[2020-09-16] MEDS ORDERED: ACETAMINOPHEN 325 MG TAB PO PRN (12:45)
[2020-09-16] MEDS ORDERED: HYDRALAZINE HCL 20 MG/ML VIAL IV PRN (12:45)
[2020-09-16] MEDS ORDERED: DEXTROSE 50%-WATER 50 ML DISP.SYRIN IV PRN (12:45)
[2020-09-16] MEDS ORDERED: HYDROMORPHONE HCL 0.5 MG/0.5 ML ML IVP PRN (12:45)
[2020-09-16] MEDS ORDERED: LABETALOL 20 MG/4 ML DISP.SYRIN IV PRN (12:45)
[2020-09-16] MEDS ORDERED: LOPERAMIDE 1 MG/7.5 ML UDCUP PO PRN (12:45)
[2020-09-16] MEDS ORDERED: VANCOMYCIN PROTOCOL PER PHARMACY IV SCH (13:15)
[2020-09-16] MEDS ORDERED: LORAZEPAM 2 MG/ML 1 ML VIAL IVP SCH (13:15)
[2020-09-16] MEDS ORDERED: COMPOUND IV REFRIGERATED 1 EACH IVSOLN MISC PRN (13:15)
[2020-09-16] MEDS ORDERED: LORAZEPAM 2 MG/ML 1 ML VIAL ONE (13:17)
[2020-09-16] MEDS: FUROSEMIDE 10 MG/ML 4ML VIAL IVP SCH (13:27)
[2020-09-16] MEDS: ZOSYN 3.375GM+NS 50ML 50 ML IV SCH ×2 (13:27→20:50)
[2020-09-16] MEDS: VANCOMYCIN 750MG + NS 250 ML IV SCH ×2 (15:00)
--- NOTE | 2020-09-16 15:53 | NUR ---
DR. Kerrie DEVI SPEAKING WITH PT.'S DAUGHTER RE:STATUS AND NEED FOR CHEST TUBE INSERTION. QUESTIONS ANSWERED BY DR. DEVI.
[2020-09-16] MEDS ORDERED: LORAZEPAM 2 MG/ML 1 ML VIAL IVP PRN (16:00)
[2020-09-16] MEDS: INSULIN HUMULIN R 100 UNIT/ML 3ML SQ SCH ×2 (16:30→21:00)
--- NOTE | 2020-09-16 16:50 | NUR ---
DR. Kerrie DEVI PLACED CHEST TUBE TO RIGHT LATERAL CHEST UNDER STERILE TECHNIQUE. APPROXIMATELY 650ML CLEAR YELLOW FLUID NOTED/OBTAINED. CHEST TUBE TO WATER SEAL PER DR. DEVI. CHEST TUBE SECURED WITH HYPOFIX TAPE. PT. TOLERATED WELL.
[2020-09-16 17:15] LABS: TOTAL PROTEIN, SERUM 6.9 g/dL (6.0-8.3)
--- NOTE | 2020-09-16 17:35 | NUR ---
PLEURAL FLUID SAMPLES TRANSPORTED TO LAB BY THIS NURSE.
--- NOTE | 2020-09-16 17:50 | NUR ---
TRANSFERRED TO ICU ROOM 221 VIA BED ACCOMPANIED BY THIS NURSE, RESPIRATORY THERAPIST AND PT.'S DAUGHTER. CHEST TUBE IN PLACE TO WATER SEAL; SECURE.
[2020-09-16 19:03] LABS: ALBUMIN,BODY FLUID 0.9 g/dL; TOTAL BILIRUBIN, BODY FLUID 0.3 mg/dL
[2020-09-16] MEDS ORDERED: SODIUM CHLORIDE 0.9% 100 ML IV ONE (19:06)
[2020-09-16] MEDS: MORPHINE SULFATE 2 MG/ML 1ML SYG IVP PRN (19:10)
[2020-09-16 19:56] LABS: SPECIMENTYPE,BODY FLUID PLEURAL
[2020-09-16 19:57] LABS: APPEARANCE BODY FLUID SLIGHTLY CLOUDY (CLEAR); COLOR,BODY FLUID YELLOW (LT YELLOW); TOTAL VOLUME,BODY FLUID 262 mL
[2020-09-16 19:58] LABS: BODY FLUID RBC 1233 /cu. mm.; BODY FLUID WBC 142 /cu. mm.
[2020-09-16 20:06] LABS: BF LYMPHOCYTE 77 %; BF MESOTHELIAL 17 %; BF MONOCYTE 2 %
[2020-09-16] MEDS: FAMOTIDINE 20MG TAB 20 MG TAB PO SCH (20:49)
[2020-09-17] VITALS (23 sets, daily range): BP systolic 120–152; BP diastolic 48–69
[2020-09-17] MEDS: FUROSEMIDE 10 MG/ML 4ML VIAL IVP SCH ×2 (01:16→12:09)
[2020-09-17 03:43] LABS: ABG BASE EXCESS -1.4 mmol/L (-2.0-3.0); ABG HCO3 23.3 mmol/L (21.0-28.0); ABG OXYGEN SATURATION 97.4 % (95.0-99.0); ABG PCO2 39 mmHg (32-45)
[2020-09-17] MEDS: ZOSYN 3.375GM+NS 50ML 50 ML IV SCH ×3 (04:11→20:10)
[2020-09-17 04:55] LABS: BASOPHILS % (AUTO) 0.3 % (0.0-5.0); EOSINOPHILS % (AUTO) 0.2 % (0.0-8.0); HEMATOCRIT 33.1 % (36-48); LYMPHOCYTES % (AUTO) 14.9 % (21.0-51.0); MEAN CORPUSCULAR HEMOGLOBIN 29.4 pg (27.0-33.0); MEAN CORPUSCULAR HGB CONC 33.8 g/dL (32.0-36.0); MEAN CORPUSCULAR VOLUME 86.9 fL (79-99); MONOCYTES % (AUTO) 5.7 % (3.0-13.0); NEUTROPHILS % (AUTO) 78.7 % (40.0-77.0); PLATELET COUNT (AUTO) 172 K/uL (130-400); RED BLOOD CELL COUNT(AUTO) 3.81 MIL/uL (4.00-5.50); RED CELL DISTRIBUTION WIDTH 13.4 % (11.0-15.5)
[2020-09-17 05:08] LABS: ALBUMIN 2.8 g/dL (3.5-5.0); BILIRUBIN,TOTAL 0.7 mg/dL (0.2-1.0); CREATININE 0.9 mg/dL (0.5-1.5); MAGNESIUM 1.3 mg/dL (1.80-2.40); PHOSPHORUS 4.4 mg/dL (2.5-4.9); POTASSIUM 3.8 mmol/L (3.5-5.1); TOTAL PROTEIN, SERUM 6.1 g/dL (6.0-8.3)
[2020-09-17] MEDS: MAGNESIUM 2GM PREMIX 50ML 50 ML IV PRN (05:19)
[2020-09-17] MEDS: INSULIN HUMULIN R 100 UNIT/ML 3ML SQ SCH ×4 (07:09→20:02)
[2020-09-17] MEDS: ASPIRIN 81MG TAB.CHEW PO SCH (08:39)
[2020-09-17] MEDS: ATORVASTATIN CALCIUM 10 MG TABLET PO SCH (08:40)
[2020-09-17] MEDS: FAMOTIDINE 20MG TAB 20 MG TAB PO SCH ×2 (08:41→19:58)
[2020-09-17] MEDS: RANOLAZINE 500 MG TAB.SR.12H PO SCH ×2 (08:41→19:58)
[2020-09-17] MEDS: AMLODIPINE BESYLATE 5 MG TAB PO SCH (08:41)
[2020-09-17] MEDS: ENOXAPARIN SODIUM 30 MG/0.3 ML SQ SCH (08:42)
[2020-09-17] MEDS: METOPROLOL SUCCINATE 50 MG TAB.SR.24H PO SCH (08:42)
[2020-09-17] MEDS: VANCOMYCIN 750MG + NS 250 ML IV SCH ×2 (13:25)
--- NOTE | 2020-09-17 16:14 | NUR ---
cm note met with patient and daughter alonzo. pt resides with spouse, ambulates with walker, has a shower chair, provider 3 1/2 hrs daily for adls, and HH agency unable to recall name. feels safe to dc home at [facility] . states no dc needs. Addendum: 09/17/20 at 1619 by COLT RIDER CM Amended: Links added.
[2020-09-17] MEDS: LOSARTAN 50 MG TABLET PO SCH (19:58)
[2020-09-17] MEDS: MORPHINE SULFATE 2 MG/ML 1ML SYG IVP PRN (21:42)
[2020-09-18] VITALS (20 sets, daily range): BP systolic 105–162; BP diastolic 49–83
[2020-09-18 03:52] LABS: BASOPHILS % (AUTO) 0.3 % (0.0-5.0); EOSINOPHILS % (AUTO) 3.6 % (0.0-8.0); HEMATOCRIT 29.4 % (36-48); LYMPHOCYTES % (AUTO) 29.3 % (21.0-51.0); MEAN CORPUSCULAR HEMOGLOBIN 30.1 pg (27.0-33.0); MONOCYTES % (AUTO) 10.1 % (3.0-13.0); NEUTROPHILS % (AUTO) 56.4 % (40.0-77.0); PLATELET COUNT (AUTO) 153 K/uL (130-400); RED BLOOD CELL COUNT(AUTO) 3.42 MIL/uL (4.00-5.50); RED CELL DISTRIBUTION WIDTH 13.4 % (11.0-15.5); WHITE BLOOD COUNT (AUTO) 3.9 K/uL (4.8-10.8)
[2020-09-18 04:03] LABS: CREATININE 0.9 mg/dL (0.5-1.5); MAGNESIUM 1.6 mg/dL (1.80-2.40); POTASSIUM 3.3 mmol/L (3.5-5.1)
[2020-09-18] MEDS: ZOSYN 3.375GM+NS 50ML 50 ML IV SCH ×3 (04:19→20:49)
[2020-09-18] MEDS: MAGNESIUM 2GM PREMIX 50ML 50 ML IV PRN (04:20)
[2020-09-18] MEDS: INSULIN HUMULIN R 100 UNIT/ML 3ML SQ SCH ×4 (06:28→20:54)
[2020-09-18] MEDS ORDERED: POTASSIUM CHLORIDE 20MEQ/100ML 100 ML IV PRN (08:45)
[2020-09-18] MEDS ORDERED: LIDOCAINE HCL-MPF 1% 2ML VIAL IV PRN (08:45)
[2020-09-18] MEDS ORDERED: POTASSIUM CHLORIDE 10% ELIXIR 20 MEQ/15 ML UDCUP PO PRN (08:45)
[2020-09-18] MEDS: AMLODIPINE BESYLATE 5 MG TAB PO SCH (08:49)
[2020-09-18] MEDS: RANOLAZINE 500 MG TAB.SR.12H PO SCH ×2 (08:49→20:49)
[2020-09-18] MEDS: ENOXAPARIN SODIUM 30 MG/0.3 ML SQ SCH (08:50)
[2020-09-18] MEDS: ASPIRIN 81MG TAB.CHEW PO SCH (08:51)
[2020-09-18] MEDS: FAMOTIDINE 20MG TAB 20 MG TAB PO SCH ×2 (08:53→20:49)
[2020-09-18] MEDS: METOPROLOL SUCCINATE 50 MG TAB.SR.24H PO SCH (08:53)
[2020-09-18] MEDS: POTASSIUM CHLORIDE 20 MEQ ERTAB PO PRN ×2 (08:53→10:43)
[2020-09-18] MEDS: ATORVASTATIN CALCIUM 10 MG TABLET PO SCH (08:54)
[2020-09-18] MEDS: VANCOMYCIN 750MG + NS 250 ML IV SCH ×2 (14:32)
--- NOTE | 2020-09-18 17:05 | NUR ---
RD NOTIFICATION Pt admitted with Respiratory distress. Pt tolerating Heart healthy diet order with no report of GI distress, PO intake at 100%. LBM 09/15. Monitored labs: BG 315, Mg 1.60, K 3.3, Alb 2.8. Pt receiving KCl, Lipitor, Lovenox, MgSO4, and antibiotic medications. PNA and CHF. Post chest tube insertion 09/16. History of Breast CA, undergoing chemotherapy. Recommend 60gm CC diet modification Recommend Glucerna QD RD to continue to monitor. Please notify as additional nutrition concerns arise. Thank you. Addendum: 09/18/20 at [address] Amended: Links added.
[2020-09-18] MEDS ORDERED: FUROSEMIDE 10 MG/ML 4ML VIAL IV SCH (17:30)
[2020-09-18] MEDS: LOSARTAN 50 MG TABLET PO SCH (20:49)
[2020-09-19] VITALS (7 sets, daily range): BP systolic 131–162; BP diastolic 63–88
[2020-09-19 04:52] LABS: BASOPHILS % (AUTO) 0.3 % (0.0-5.0); EOSINOPHILS % (AUTO) 4.4 % (0.0-8.0); HEMATOCRIT 29.6 % (36-48); LYMPHOCYTES % (AUTO) 21.2 % (21.0-51.0); MEAN CORPUSCULAR HEMOGLOBIN 29.6 pg (27.0-33.0); MEAN CORPUSCULAR HGB CONC 34.5 g/dL (32.0-36.0); MEAN CORPUSCULAR VOLUME 85.8 fL (79-99); MONOCYTES % (AUTO) 7.7 % (3.0-13.0); NEUTROPHILS % (AUTO) 65.9 % (40.0-77.0); PLATELET COUNT (AUTO) 161 K/uL (130-400); RED BLOOD CELL COUNT(AUTO) 3.45 MIL/uL (4.00-5.50); RED CELL DISTRIBUTION WIDTH 13.2 % (11.0-15.5); WHITE BLOOD COUNT (AUTO) 3.6 K/uL (4.8-10.8)
[2020-09-19 05:17] LABS: ALBUMIN 2.5 g/dL (3.5-5.0); BILIRUBIN,TOTAL 0.5 mg/dL (0.2-1.0); CREATININE 0.8 mg/dL (0.5-1.5); MAGNESIUM 1.3 mg/dL (1.80-2.40); PHOSPHORUS 3.9 mg/dL (2.5-4.9); POTASSIUM 3.4 mmol/L (3.5-5.1); TOTAL PROTEIN, SERUM 5.8 g/dL (6.0-8.3)
[2020-09-19] MEDS: INSULIN HUMULIN R 100 UNIT/ML 3ML SQ SCH ×4 (05:39→21:00)
[2020-09-19] MEDS: ZOSYN 3.375GM+NS 50ML 50 ML IV SCH ×3 (05:41→22:24)
[2020-09-19] MEDS: MAGNESIUM 2GM PREMIX 50ML 50 ML IV PRN (05:41)
[2020-09-19] MEDS: ASPIRIN 81MG TAB.CHEW PO SCH (07:34)
[2020-09-19] MEDS: FAMOTIDINE 20MG TAB 20 MG TAB PO SCH ×2 (07:34→22:25)
[2020-09-19] MEDS: RANOLAZINE 500 MG TAB.SR.12H PO SCH ×2 (07:34→22:24)
[2020-09-19] MEDS: METOPROLOL SUCCINATE 50 MG TAB.SR.24H PO SCH (07:34)
[2020-09-19] MEDS: AMLODIPINE BESYLATE 5 MG TAB PO SCH (07:34)
[2020-09-19] MEDS: ATORVASTATIN CALCIUM 10 MG TABLET PO SCH (07:34)
[2020-09-19] MEDS: ENOXAPARIN SODIUM 30 MG/0.3 ML SQ SCH (07:35)
--- NOTE | 2020-09-19 08:00 | NUR ---
ASSESSMENT PT IS AAOX3 DENIES CP DENIES SOB DENIES NV AT THIS TIME, BREATHING PATTERN IS EVEN AND UNLABORED NO VISIBLE SIGNS OF DISTRESS NOTED. ENCOURAGED COUGH AND DEEP BREATHING. CALL LIGHT WITHIN REACH.
--- NOTE | 2020-09-19 12:30 | NUR ---
Jalyn LOCKE SAW PATIENT AND SPOKE WITH FAMILY IN ROOM
[2020-09-19] MEDS: VANCOMYCIN 750MG + NS 250 ML IV SCH ×2 (13:33)
--- NOTE | 2020-09-19 17:21 | NUR ---
STATUS NO COMPLAINTS RESTING IN BED, DAUGHTER AT BEDSIDE.
[2020-09-19] MEDS: LOSARTAN 50 MG TABLET PO SCH (22:25)
[2020-09-20] MEDS: VANCOMYCIN 750MG + NS 250 ML IV SCH ×4 (02:02→13:24)
[2020-09-20 04:06] VITALS: BP 117/58
[2020-09-20] MEDS: INSULIN HUMULIN R 100 UNIT/ML 3ML SQ SCH (05:44)
[2020-09-20] MEDS: ZOSYN 3.375GM+NS 50ML 50 ML IV SCH ×2 (05:52→13:26)
[2020-09-20 09:36] VITALS: BP 156/66
[2020-09-20] MEDS: FAMOTIDINE 20MG TAB 20 MG TAB PO SCH (09:36)
[2020-09-20] MEDS: RANOLAZINE 500 MG TAB.SR.12H PO SCH (09:36)
[2020-09-20] MEDS: ASPIRIN 81MG TAB.CHEW PO SCH (09:37)
[2020-09-20] MEDS: AMLODIPINE BESYLATE 5 MG TAB PO SCH (09:37)
[2020-09-20] MEDS: METOPROLOL SUCCINATE 50 MG TAB.SR.24H PO SCH (09:37)
[2020-09-20] MEDS: ENOXAPARIN SODIUM 30 MG/0.3 ML SQ SCH (09:38)
[2020-09-20 12:29] VITALS: BP 128/65
[2020-09-20] MEDS ORDERED: HEPARIN SODIUM/PF 100UNIT/ML 5ML SYRINGE IV SCH (14:45)
== END 2020-09-20 17:50 | disposition home or self-care (01) | DRG 291 ==
LOC: EDH 06:42 → OBSVTOIN 08:55 → EDHIP 08:55 → 4DH 10:59 → 2DH 18:05 → 4DH 09-18 21:46
PROVIDERS: ADMIT Internal Medicine Pulmonary Disease; ATTEND Internal Medicine Pulmonary Disease
PROC: 5A09357 Assistance with Respiratory Ventilation, Less than 24 Consecutive Hours, Continuous Positive Airway Pressure (ICD-10-PCS; principal; 2020-09-16)
PROC: 0W9930Z Drainage of Right Pleural Cavity with Drainage Device, Percutaneous Approach (ICD-10-PCS; 2020-09-16)
DX: I11.0 Hypertensive heart disease with heart failure (principal); J18.9 Pneumonia, unspecified organism; J96.01 Acute respiratory failure with hypoxia; J44.0 Chronic obstructive pulmonary disease with (acute) lower respiratory infection; J91.8 Pleural effusion in other conditions classified elsewhere; I50.23 Acute on chronic systolic (congestive) heart failure; G30.9 Alzheimer's disease, unspecified; F02.80 Dementia in other diseases classified elsewhere, unspecified severity, without behavioral disturbance, psychotic disturbance, mood disturbance, and anxiety; C50.919 Malignant neoplasm of unspecified site of unspecified female breast; K21.9 Gastro-esophageal reflux disease without esophagitis; Z20.828 Contact with and (suspected) exposure to other viral communicable diseases; E78.5 Hyperlipidemia, unspecified; E11.9 Type 2 diabetes mellitus without complications; M19.90 Unspecified osteoarthritis, unspecified site; G47.00 Insomnia, unspecified; Y95 Nosocomial condition; I25.10 Atherosclerotic heart disease of native coronary artery without angina pectoris; M32.9 Systemic lupus erythematosus, unspecified; K76.9 Liver disease, unspecified; E78.00 Pure hypercholesterolemia, unspecified; R19.7 Diarrhea, unspecified; Z90.710 Acquired absence of both cervix and uterus; Z90.11 Acquired absence of right breast and nipple; Z90.49 Acquired absence of other specified parts of digestive tract; Z86.73 Personal history of transient ischemic attack (TIA), and cerebral infarction without residual deficits; Z91.041 Radiographic dye allergy status
CPT/HCPCS: 32551; 36415; 36600; 71045; 71250; 80048; 80053; 80202; 82042; 82247; 82378; 82435; 82803; 82945; 82947; 82948; 83605; 83615; 83735; 83986; 84100; 84132; 84145; 84155; 84157; 84295; 84315; 84484; 85018; 85025; 85610; 85730; 86038; 86316; 87040; 87071; 87116; 87205; 87206; 87426; 89051; 93005; 94660; 94760; 97039; 99291; A4606; G0378; J1642; J1650; J1815; J1940; J2060; J2405; J2543; J3370; J3475; J7050; U0003

== ENCOUNTER → 2021-01-08 | Outpatient (CLI) | payer OTHER ==
[~2021-01-08] MED LIST changes: -DEXA6TAB PO; -DOXY100C2 PO; +IOHEXOL-350 75 ML VIAL IV ONE; -LOSA25TA41 PO; -OLME1TAB86 PO; -TIZA4TAB5 PO
== END | disposition home or self-care (01) ==
LOC: RAH 07:35
PROVIDERS: ATTEND Internal Medicine Gastroenterology
DX: K76.0 Fatty (change of) liver, not elsewhere classified (principal); R93.3 Abnormal findings on diagnostic imaging of other parts of digestive tract; K86.9 Disease of pancreas, unspecified
CPT/HCPCS: 74170; Q9967; 74178

== ENCOUNTER 2021-02-06 08:18 | Day surgery (SDC) | payer OTHER ==
[~2021-02-06] VITALS: Ht 152.4 cm; Wt 50.8 kg
[~2021-02-06 08:18] MED LIST changes: -AMLO-258 PO; +DONE5TAB33 PO; -DULA1.5P SQ; -INSU100I21 SQ; -IOHEXOL-350 75 ML VIAL IV ONE; +METO-391 PO; -METO-409 PO; +OZEMPIC SQ; -PANT40TA54 PO; +PANT40TA55 PO; -POLY17PO4 PO; -RANO500T3 PO; -SITA1TAB2 PO; +SODIUM CHLORIDE 0.9% 1000ML 1,000 ML IV ONE
[2021-02-06 09:14] VITALS: BP 177/62
[2021-02-06] MEDS ORDERED: MELA5CAP PO (09:50)
[2021-02-06] MEDS ORDERED: PROPOFOL 10 MG/ML 20ML VIAL IV ONE (10:00)
[2021-02-06 10:35] VITALS: BP 116/50
[2021-02-06 10:40] VITALS: BP 136/59
[2021-02-06 10:45] VITALS: BP 168/66
[2021-02-06 11:00] VITALS: BP 177/65
[2021-02-06 11:15] VITALS: BP 166/68
== END 2021-02-06 11:40 | disposition home or self-care (01) ==
LOC: DAH 08:18 → ENDO 08:18
PROVIDERS: ATTEND Internal Medicine
DX: K86.89 Other specified diseases of pancreas (principal); Z20.822 Contact with and (suspected) exposure to COVID-19; I11.0 Hypertensive heart disease with heart failure; I50.9 Heart failure, unspecified; K21.9 Gastro-esophageal reflux disease without esophagitis; C50.919 Malignant neoplasm of unspecified site of unspecified female breast; E11.9 Type 2 diabetes mellitus without complications; F03.90 Unspecified dementia, unspecified severity, without behavioral disturbance, psychotic disturbance, mood disturbance, and anxiety; Z86.010 Personal history of colon polyps; Z86.73 Personal history of transient ischemic attack (TIA), and cerebral infarction without residual deficits; Z90.710 Acquired absence of both cervix and uterus; Z90.49 Acquired absence of other specified parts of digestive tract; Z90.11 Acquired absence of right breast and nipple; Z80.0 Family history of malignant neoplasm of digestive organs; Z88.3 Allergy status to other anti-infective agents
CPT/HCPCS: 43238; 82948 ×2; A4215 ×2; A4221; A4222; A4223; A4606; A4620; A4657; A4663; C9803; J2704; J7030; U0003

== ENCOUNTER 2021-02-20 06:36 | Day surgery (SDC) | payer OTHER ==
[~2021-02-20] VITALS: Ht 152.4 cm; Wt 52.6 kg
[2021-02-20] VITALS (7 sets, daily range): BP systolic 127–166; BP diastolic 59–71
[~2021-02-20 06:36] MED LIST changes: -ASPI-1197 PO; +FLUT1AER IH; +FURO80TA3 PO; +INSU100C6 SQ; +INSU100V37 SQ; +MAGN250T2 PO; -METO-391 PO; +METO-409 PO; -ONDA4TAB10 PO; +TRAZ-185 PO
[2021-02-20] MEDS ORDERED: PROPOFOL 10 MG/ML 20ML VIAL IV ONE ×2 (09:29)
[2021-02-20] MEDS ORDERED: GLYCOPYRROLATE 0.2 MG/ML 5 ML VIAL ONE (10:09)
== END 2021-02-20 11:25 | disposition home or self-care (01) ==
LOC: DAH 06:36
PROVIDERS: ATTEND Internal Medicine
DX: K86.89 Other specified diseases of pancreas (principal); Z20.822 Contact with and (suspected) exposure to COVID-19; K31.89 Other diseases of stomach and duodenum; K59.00 Constipation, unspecified; E78.5 Hyperlipidemia, unspecified; K21.9 Gastro-esophageal reflux disease without esophagitis; I11.0 Hypertensive heart disease with heart failure; E11.9 Type 2 diabetes mellitus without complications; Z88.3 Allergy status to other anti-infective agents; Z90.49 Acquired absence of other specified parts of digestive tract; Z90.710 Acquired absence of both cervix and uterus; Z95.5 Presence of coronary angioplasty implant and graft; Z90.11 Acquired absence of right breast and nipple; Z98.42 Cataract extraction status, left eye; Z98.41 Cataract extraction status, right eye; Z79.899 Other long term (current) drug therapy; Z86.010 Personal history of colon polyps; Z86.73 Personal history of transient ischemic attack (TIA), and cerebral infarction without residual deficits; Z85.3 Personal history of malignant neoplasm of breast; Z92.3 Personal history of irradiation; Z80.0 Family history of malignant neoplasm of digestive organs; Z82.49 Family history of ischemic heart disease and other diseases of the circulatory system
CPT/HCPCS: 43238; 82948 ×2; A4215 ×2; A4221; A4222; A4223; A4606; A4620; A4663; C9803; J2704 ×2; J3490; J7030; U0003

== ENCOUNTER → 2022-01-28 | Outpatient (CLI) | payer OTHER ==
[~2022-01-28] VITALS: Ht 154.9 cm; Wt 49.4 kg
[~2022-01-28] MED LIST changes: -MAGN250T2 PO; +MAGN250T35 PO; +REGADENOSON 0.4 MG/5 ML PF SYG IVP SCH; -SODIUM CHLORIDE 0.9% 1000ML 1,000 ML IV ONE
== END | disposition home or self-care (01) ==
LOC: SHCH 08:19
PROVIDERS: ATTEND Internal Medicine Cardiovascular Disease
DX: I11.9 Hypertensive heart disease without heart failure (principal); R94.39 Abnormal result of other cardiovascular function study
CPT/HCPCS: 78452; 93017; 96374; A9500 ×2; J2785

== ENCOUNTER → 2022-05-14 | Outpatient (CLI) | payer OTHER ==
[~2022-05-14] MED LIST changes: -REGADENOSON 0.4 MG/5 ML PF SYG IVP SCH
== END | disposition home or self-care (01) ==
LOC: SHCH 10:56
PROVIDERS: ATTEND Internal Medicine Cardiovascular Disease
DX: I42.0 Dilated cardiomyopathy (principal); I11.9 Hypertensive heart disease without heart failure; E11.9 Type 2 diabetes mellitus without complications
CPT/HCPCS: 93306

== ENCOUNTER 2022-11-11 07:10 | Day surgery (SDC) | payer OTHER ==
[2022-11-05 10:27] LABS: BASOPHILS % (AUTO) 0.2 % (0.0-5.0); EOSINOPHILS % (AUTO) 1.5 % (0.0-8.0); HEMATOCRIT 33.5 % (36-48); LYMPHOCYTES % (AUTO) 15.6 % (21.0-51.0); MEAN CORPUSCULAR HEMOGLOBIN 26.3 pg (27.0-33.0); MEAN CORPUSCULAR HGB CONC 32.2 g/dL (32.0-36.0); MEAN CORPUSCULAR VOLUME 81.5 fL (79-99); MONOCYTES % (AUTO) 8.3 % (3.0-13.0); NEUTROPHILS % (AUTO) 74.2 % (40.0-77.0); PLATELET COUNT (AUTO) 144 K/uL (130-400); RED BLOOD CELL COUNT(AUTO) 4.11 MIL/uL (4.00-5.50); RED CELL DISTRIBUTION WIDTH 15.6 % (11.0-15.5); WHITE BLOOD COUNT (AUTO) 5.4 K/uL (4.8-10.8)
[2022-11-05 10:47] LABS: CREATININE 0.9 mg/dL (0.5-1.5); POTASSIUM 3.5 mmol/L (3.5-5.1)
[2022-11-05 10:53] LABS: APPEARANCE,URINE CLEAR (CLEAR); BILIRUBIN,URINE NEGATIVE (NEGATIVE); COLOR,URINE YELLOW (YELLOW); GLUCOSE, URINE (UA) >=1000 mg/dL (NEGATIVE); KETONES,URINE NEGATIVE (NEGATIVE); LEUKOCYTE ESTERASE ,URINE 250 Leu/uL (NEGATIVE); NITRATE,URINE NEGATIVE (NEGATIVE); OCCULT BLOOD,URINE NEGATIVE (NEGATIVE); PH,URINE 5.5 (5.0-8.0); PROTEIN,URINE NEGATIVE (NEGATIVE); UROBILINOGEN,URINE 0.2 mg/dL (0.2-1.0)
[2022-11-05 11:13] LABS: B-TYPE NATRIURETIC PEPTIDE 128 pg/mL (0-100)
[2022-11-05 12:08] LABS: PROTHROMBIN TIME 10.9 SEC (9.6-11.6)
[2022-11-05 12:09] LABS: PARTIAL THROMBOPLASTIN TIME 26.8 SEC (26.3-35.5)
[2022-11-05 12:26] LABS: MUCUS,URINE RARE LPF (None Seen); RBC,URINE 0-1 /HPF (0-1); SQUAMOUS EPITHELIAL CELL,UR RARE /HPF (0-2)
[2022-11-07 13:11] VITALS: BP 147/67
[2022-11-11] VITALS (12 sets, daily range): BP systolic 13–147; BP diastolic 38–68
[~2022-11-11] VITALS: Ht 152.4 cm; Wt 45.4 kg
[~2022-11-11 07:10] MED LIST changes: +0.9% NACL 500ML IV.SOLN 500 ML IV SCH; +DONE-53 PO; -DONE5TAB33 PO; +EMPA10TA PO; +FAMO40TA7 PO; -FLUT1AER IH; -INSU100C6 SQ; -INSU100V37 SQ; +INSU300I3 SQ; +LIPA1CAP18 PO; +LOSA25TA41 PO; -MAGN250T35 PO; +NITR0.4T50 SL; -OZEMPIC SQ; +SERT-438 PO; -TRAM50TA4 PO; -TRAZ-185 PO
[2022-11-11] MEDS ORDERED: DiphenhydrAMINE HCL 50 MG/ML VIAL IVP SCH (08:00)
[2022-11-11] MEDS ORDERED: SOLU-MEDROL 125MG VIAL IVP SCH (08:00)
[2022-11-11] MEDS ORDERED: 0.9%NACL 1000ML 1,000 ML IV ONE (08:27)
[2022-11-11] MEDS ORDERED: LIDOCAINE HCL 400MG/20ML VIAL ONE (08:30)
[2022-11-11] MEDS ORDERED: MEPERIDINE-PF 25 MG/ML SYG ONE (08:30)
[2022-11-11] MEDS ORDERED: NITROGLYCERIN 50MG VIAL ONE (08:30)
[2022-11-11] MEDS ORDERED: MIDAZOLAM HCL 1 MG/ML 2ML VIAL ONE (08:30)
[2022-11-11] MEDS ORDERED: IOHEXOL 350 MG/ML 100ML INFUS..BTL IV ONE (08:30)
[2022-11-11] MEDS ORDERED: IOHEXOL-350 50ML VIAL IV ONE (08:30)
[2022-11-11] MEDS ORDERED: HEPARIN 10,000 UNIT/10ML (1,000 UNIT/ML) VIAL ONE (08:41)
[2022-11-11] MEDS ORDERED: FAMOTIDINE 20MG VIAL IV ONE (08:46)
[2022-11-11] MEDS ORDERED: GLUCAGON 1MG KIT 1 MG ML IM PRN (09:30)
[2022-11-11] MEDS ORDERED: DEXTROSE 50%-WATER 50 ML DISP.SYRIN IV PRN (09:30)
[2022-11-11] MEDS ORDERED: INSULIN HUMULIN R 100 UNIT/ML 3ML SQ SCH (11:30)
== END 2022-11-11 14:00 | disposition home or self-care (01) ==
LOC: DAH 07:10
PROVIDERS: ATTEND Internal Medicine Cardiovascular Disease
DX: I25.119 Atherosclerotic heart disease of native coronary artery with unspecified angina pectoris (principal); I42.8 Other cardiomyopathies; I11.0 Hypertensive heart disease with heart failure; I50.42 Chronic combined systolic (congestive) and diastolic (congestive) heart failure; I25.2 Old myocardial infarction; E11.9 Type 2 diabetes mellitus without complications; Z79.899 Other long term (current) drug therapy; Z79.01 Long term (current) use of anticoagulants; Z88.3 Allergy status to other anti-infective agents; Z90.710 Acquired absence of both cervix and uterus; Z90.49 Acquired absence of other specified parts of digestive tract; Z90.10 Acquired absence of unspecified breast and nipple
CPT/HCPCS: 80048; 83880; 85025; 85610; 85730; 87088; 81001; 36415; 71045; 93005; 93458; 82948; C1894; C1760; J1200; J3490 ×3; J7030; J2930; J2250; J2175; J1644; Q9967 ×2; A4215; A4222; A4221; A4663; A4216; A4606; Q9965; A4223 ×3; 96374; 96375; 99156; 99157

== ENCOUNTER 2023-02-11 06:13 | Day surgery (SDC) | payer OTHER ==
[2023-02-06 14:14] LABS: BASOPHILS % (AUTO) 0.7 % (0.0-5.0); EOSINOPHILS % (AUTO) 2.5 % (0.0-8.0); HEMATOCRIT 32.7 % (36-48); LYMPHOCYTES % (AUTO) 23.7 % (21.0-51.0); MEAN CORPUSCULAR HEMOGLOBIN 27.8 pg (27.0-33.0); MEAN CORPUSCULAR HGB CONC 32.7 g/dL (32.0-36.0); MEAN CORPUSCULAR VOLUME 84.9 fL (79-99); MONOCYTES % (AUTO) 8.1 % (3.0-13.0); NEUTROPHILS % (AUTO) 64.6 % (40.0-77.0); PLATELET COUNT (AUTO) 109 K/uL (130-400); RED BLOOD CELL COUNT(AUTO) 3.85 MIL/uL (4.00-5.50); RED CELL DISTRIBUTION WIDTH 15.5 % (11.0-15.5); WHITE BLOOD COUNT (AUTO) 2.8 K/uL (4.8-10.8)
[2023-02-06 14:27] LABS: INR 1.09 (0.85-1.15); PROTHROMBIN TIME 11.8 SEC (9.6-11.6)
[2023-02-06 14:28] LABS: CREATININE 0.9 mg/dL (0.5-1.5); POTASSIUM 3.7 mmol/L (3.5-5.1)
[2023-02-06 14:29] LABS: PARTIAL THROMBOPLASTIN TIME 27.6 SEC (26.3-35.5)
[2023-02-06 14:54] VITALS: BP 145/65
[2023-02-06 15:32] LABS: BAND NEUTROPHILS % (MANUAL) 3 % (0-2); EOSINOPHILS % (MANUAL) 2 % (1-6); LYMPHOCYTES % (MANUAL) 26 % (22-44); MAN.DIFF COMMENT-IMPRESSION MANUAL DIFFERENTIAL; MONOCYTES % (MANUAL) 2 % (2-9); REACTIVE LYMPHOCYTES 9 % (0-0); SEGMENTED NEUTROPHILS % 58 % (40-70)
[~2023-02-11] VITALS: Ht 152.4 cm; Wt 47.7 kg
[2023-02-11] VITALS (13 sets, daily range): BP systolic 174–215; BP diastolic 53–84
[~2023-02-11 06:13] MED LIST changes: -0.9% NACL 500ML IV.SOLN 500 ML IV SCH; -EMPA10TA PO; +FAMO20TA8 PO; -FAMO40TA7 PO; +INSU100V3 SQ; +IRON PO; -LOSA25TA41 PO; +MAGN250C PO; +ONDA4TAB10 PO; +POTASSIUM GLUCONATE PO; +SITA100T12 PO
[2023-02-11] MEDS ORDERED: 0.9%NACL 1000ML 1,000 ML IV ONE (07:26)
[2023-02-11] MEDS ORDERED: MEPERIDINE-PF 25 MG/ML SYG ONE ×2 (07:28→08:00)
[2023-02-11] MEDS ORDERED: MIDAZOLAM HCL 1 MG/ML 2ML VIAL ONE ×2 (07:28→08:00)
[2023-02-11] MEDS ORDERED: LIDOCAINE HCL 1% MDV 50ML VIAL ONE (07:28)
[2023-02-11] MEDS ORDERED: CEFAZOLIN SODIUM 1 GM VIAL ONE ×2 (07:28→14:13)
[2023-02-11] MEDS ORDERED: BUPIVACAINE/PF 0.25% 10ML VIAL IJ ONE (07:30)
[2023-02-11] MEDS ORDERED: DiphenhydrAMINE HCL 50 MG/ML VIAL ONE (07:40)
[2023-02-11] MEDS ORDERED: SOLU-MEDROL 125MG VIAL ONE (07:40)
[2023-02-11] MEDS ORDERED: IOHEXOL-350 50ML VIAL IV ONE (07:56)
[2023-02-11] MEDS ORDERED: GLUCAGON 1MG KIT 1 MG ML IM PRN (08:30)
[2023-02-11] MEDS ORDERED: ACETAMINOPHEN WITH CODEINE 1 TAB TAB PO PRN ×2 (08:30)
[2023-02-11] MEDS ORDERED: DEXTROSE 50%-WATER 50 ML DISP.SYRIN IV PRN (08:30)
[2023-02-11] MEDS ORDERED: ONDANSETRON 4MG INJ IV PRN (08:30)
[2023-02-11] MEDS ORDERED: BACITRACIN 1 EACH PACKET TP ONE (08:32)
[2023-02-11] MEDS ORDERED: INSULIN HUMULIN R 100 UNIT/ML 3ML ONE (09:27)
[2023-02-11] MEDS ORDERED: INSULIN HUMULIN R 100 UNIT/ML 3ML SQ SCH (11:30)
[2023-02-11] MEDS ORDERED: CEFAZOLIN SODIUM 2 GM VIAL IVP SCH (14:30)
== END 2023-02-11 16:00 | disposition home or self-care (01) ==
LOC: DAH 06:13
PROVIDERS: ATTEND Internal Medicine Cardiovascular Disease
DX: I42.0 Dilated cardiomyopathy (principal); Z45.2 Encounter for adjustment and management of vascular access device; I11.0 Hypertensive heart disease with heart failure; I50.42 Chronic combined systolic (congestive) and diastolic (congestive) heart failure; E11.9 Type 2 diabetes mellitus without complications; K21.9 Gastro-esophageal reflux disease without esophagitis; I25.2 Old myocardial infarction; Z90.11 Acquired absence of right breast and nipple; Z82.49 Family history of ischemic heart disease and other diseases of the circulatory system; Z90.49 Acquired absence of other specified parts of digestive tract; Z90.710 Acquired absence of both cervix and uterus; Z98.890 Other specified postprocedural states; Z85.3 Personal history of malignant neoplasm of breast; Z92.21 Personal history of antineoplastic chemotherapy; Z79.899 Other long term (current) drug therapy; Z79.01 Long term (current) use of anticoagulants; Z88.3 Allergy status to other anti-infective agents; Z79.4 Long term (current) use of insulin
CPT/HCPCS: 80048; 85025; 85610; 85730; 36415; 93005; 33249; 36590; 82948 ×3; 71045; J1815; C1769; C1722; C1895; C1894; J1200; J0690 ×2; J7030; J2930; J2250 ×2; J3490 ×2; J2175 ×2; Q9967; A4215 ×2; A4222; A4221; A4663; A4216; A4606; A4223 ×3; 99156; 99157

== ENCOUNTER → 2023-10-31 | Outpatient (CLI) | payer OTHER | END | disposition home or self-care (01) | LOC: RAH 14:06 | PROVIDERS: ATTEND Family Medicine | DX: S09.90XA Unspecified injury of head, initial encounter (principal); W10.9XXA Fall (on) (from) unspecified stairs and steps, initial encounter; Y93.89 Activity, other specified; Y92.89 Other specified places as the place of occurrence of the external cause; Y99.8 Other external cause status | CPT/HCPCS: 70450 ==

== ENCOUNTER → 2024-01-23 | Outpatient (CLI) | payer OTHER ==
[2024-01-23 17:03] LABS: ALBUMIN 2.7 g/dL (3.5-5.0); BILIRUBIN,TOTAL 0.9 mg/dL (0.2-1.0); CREATININE 0.7 mg/dL (0.5-1.5); MAGNESIUM 1.6 mg/dL (1.80-2.40); POTASSIUM 4.8 mmol/L (3.5-5.1); TOTAL PROTEIN, SERUM 6.6 g/dL (6.0-8.3)
== END | disposition home or self-care (01) ==
LOC: LAB 13:43
PROVIDERS: ATTEND Physician Assistant
DX: I10 Essential (primary) hypertension (principal)
CPT/HCPCS: 36415; 80053; 83735; 83880

== ENCOUNTER → 2024-02-18 | Outpatient (CLI) | payer OTHER | END | disposition home or self-care (01) | LOC: SHCH 08:02 | PROVIDERS: ATTEND Internal Medicine Cardiovascular Disease | DX: Z95.810 Presence of automatic (implantable) cardiac defibrillator (principal) | CPT/HCPCS: 93975; 93978 ==

== ENCOUNTER → 2024-03-12 | Outpatient (CLI) | payer OTHER ==
[~2024-03-12] MED LIST changes: +IOHEXOL-350 75 ML VIAL IV ONE
== END | disposition home or self-care (01) ==
LOC: RAH 10:09
PROVIDERS: ATTEND Internal Medicine Cardiovascular Disease
DX: I70.0 Atherosclerosis of aorta (principal); I42.0 Dilated cardiomyopathy; Z90.49 Acquired absence of other specified parts of digestive tract
CPT/HCPCS: 74175; Q9967

== ENCOUNTER → 2024-03-29 | Outpatient (CLI) | payer OTHER ==
[~2024-03-29] MED LIST changes: -IOHEXOL-350 75 ML VIAL IV ONE
[2024-03-29 12:20] LABS: BASOPHILS # (AUTO) 0.01 K/uL (0.00-0.20); BASOPHILS % (AUTO) 0.3 % (0.0-5.0); EOSINOPHILS # (AUTO) 0.03 K/uL (0.00-0.70); EOSINOPHILS % (AUTO) 0.9 % (0.0-8.0); HEMATOCRIT 28.5 % (36-48); IMMATURE GRANULOCYTE ABSOLUTE 0.01 K/uL (0-1); LYMPHOCYTES # (AUTO) 0.6 K/uL (1.0-4.8); LYMPHOCYTES % (AUTO) 16.6 % (21.0-51.0); MEAN CORPUSCULAR HEMOGLOBIN 29.1 pg (27.0-33.0); MEAN CORPUSCULAR VOLUME 88.2 fL (79-99); MONOCYTES # (AUTO) 0.3 K/uL (0.1-1.0); MONOCYTES % (AUTO) 7.7 % (3.0-13.0); NEUTROPHILS # (AUTO) 2.5 K/uL (1.8-7.7); NEUTROPHILS % (AUTO) 74.2 % (40.0-77.0); PLATELET COUNT (AUTO) 98 K/uL (130-400); RED BLOOD CELL COUNT(AUTO) 3.23 MIL/uL (4.00-5.50); RED CELL DISTRIBUTION WIDTH 18.6 % (11.0-15.5); WHITE BLOOD COUNT (AUTO) 3.4 K/uL (4.8-10.8)
[2024-03-29 12:32] LABS: INR 1.02 (0.85-1.15)
[2024-03-29 12:34] LABS: PARTIAL THROMBOPLASTIN TIME 28.3 SEC (26.3-35.5)
[2024-03-29 12:36] LABS: CREATININE 0.7 mg/dL (0.5-1.0); POTASSIUM 3.8 mmol/L (3.5-5.1)
== END | disposition home or self-care (01) ==
LOC: LAB 10:29
PROVIDERS: ATTEND Internal Medicine Cardiovascular Disease
DX: I10 Essential (primary) hypertension (principal); I50.9 Heart failure, unspecified
CPT/HCPCS: 36415; 80048; 85025; 85610; 85730

== ENCOUNTER 2024-08-12 06:12 | Day surgery (SDC) | payer OTHER ==
[2024-08-12] VITALS (10 sets, daily range): BP systolic 109–143; BP diastolic 40–49; PULSE 51–60; RESP 14–16; TEMP 97.1–98.4
[~2024-08-12] VITALS: Ht 170.2 cm; Wt 48.5 kg
[~2024-08-12 06:12] MED LIST changes: +ONDA-243 PO; -ONDA4TAB10 PO
[2024-08-12] MEDS: 0.9%NACL 1000ML 1,000 ML IV ONE (07:03)
[2024-08-12] MEDS ORDERED: SPIR25TA PO (07:08)
[2024-08-12] MEDS ORDERED: SACU1TAB PO (07:13)
[2024-08-12] MEDS ORDERED: DRON400T7 PO (07:13)
[2024-08-12] MEDS ORDERED: LEVO5TAB13 PO (07:16)
[2024-08-12] MEDS ORDERED: LINA145C PO (07:16)
[2024-08-12] MEDS ORDERED: DICY10CA2 PO (07:16)
[2024-08-12] MEDS ORDERED: LIPA1CAP18 PO (07:16)
[2024-08-12] MEDS ORDERED: INSLAN SQ (07:18)
[2024-08-12] MEDS ORDERED: proPOFol 10 MG/ML 20ML VIAL IV ONE (09:18)
== END 2024-08-12 10:50 | disposition home or self-care (01) ==
LOC: DAH 06:12
PROVIDERS: ATTEND Internal Medicine
DX: D50.9 Iron deficiency anemia, unspecified (principal); K63.89 Other specified diseases of intestine; K57.30 Diverticulosis of large intestine without perforation or abscess without bleeding; K31.89 Other diseases of stomach and duodenum; K43.9 Ventral hernia without obstruction or gangrene; K92.1 Melena; R13.10 Dysphagia, unspecified; R10.13 Epigastric pain; R11.0 Nausea; D69.49 Other primary thrombocytopenia; E78.5 Hyperlipidemia, unspecified; C50.919 Malignant neoplasm of unspecified site of unspecified female breast; I11.0 Hypertensive heart disease with heart failure; I50.9 Heart failure, unspecified; I25.10 Atherosclerotic heart disease of native coronary artery without angina pectoris; K21.9 Gastro-esophageal reflux disease without esophagitis; E11.9 Type 2 diabetes mellitus without complications; Z86.73 Personal history of transient ischemic attack (TIA), and cerebral infarction without residual deficits; F03.90 Unspecified dementia, unspecified severity, without behavioral disturbance, psychotic disturbance, mood disturbance, and anxiety; Z79.4 Long term (current) use of insulin; Z79.899 Other long term (current) drug therapy; Z86.010 Personal history of colon polyps; Z90.49 Acquired absence of other specified parts of digestive tract; Z90.710 Acquired absence of both cervix and uterus; Z90.11 Acquired absence of right breast and nipple; Z86.16 Personal history of COVID-19
CPT/HCPCS: 82948 ×2; 43239; 45380; J7030 ×2; J2704; A4620; A7002; J3490

== ENCOUNTER → 2024-08-18 | Outpatient (CLI) | payer OTHER ==
[~2024-08-18] MED LIST changes: -ATOR10TA69 PO; +DICY10CA2 PO; +DRON400T7 PO; +GADOTERATE MEGLUMINE 5 MMOL/10 ML VIAL IV ONE; +INSLAN SQ; -INSU100V3 SQ; -INSU300I3 SQ; +LEVO5TAB13 PO; +LINA145C PO; -LOSA50TA64 PO; -MAGN250C PO; -METO-409 PO; -POTASSIUM GLUCONATE PO; +SACU1TAB PO; -SITA100T12 PO; +SPIR25TA PO
== END | disposition home or self-care (01) ==
LOC: CANSCHCLI → RAH 10:48
PROVIDERS: ATTEND Internal Medicine Medical Oncology
DX: C50.811 Malignant neoplasm of overlapping sites of right female breast (principal); R42 Dizziness and giddiness; R51.9 Headache, unspecified
CPT/HCPCS: 70553; A9575

== ENCOUNTER → 2024-12-25 | Outpatient (CLI) | payer OTHER ==
[~2024-12-25] MED LIST changes: -GADOTERATE MEGLUMINE 5 MMOL/10 ML VIAL IV ONE
--- NOTE | 2024-12-28 12:03 | HMCSR ---
APPROVED REPORT EXAM: Two-dimensional and M-mode echocardiogram with Doppler and color Doppler. INDICATION ICD: Dyspnea R06.00 2D Dimensions RVDd3.2 cmLVEF(%)30.4 (>50%)LVED Vol(simp.)107.0 mL IVSd0.7 (0.7-1.1cm)FS(%)14 %LVES Vol(simp.)61.1 mL LVDd4.9 (3.8-5.6cm)LA (2D)3.5 (1.6-4.0cm)LVEF(%, simp.)43 % PWd1.2 (0.7-1.1cm)Ao Root(2D)2.8 (2.0-3.7cm)LA ESV INDEX (4CH)25.20 mL/m2 IVSs2.9 cmLVOT diam2.0 (1.8-2.4cm)LA ESV INDEX (2CH)30.90 mL/m2 LVDs4.2 (2.5-4.0cm)LA ESV INDEX (BP)31.60 mL/m2 PWs1.3 cm M-Mode Dimensions EPSS2.1 cm LA (MM)4.0 (1.6-4.0cm) Ao Root(MM)2.7 (2.0-3.7cm) Aortic Valve AoV VTI0.3 mAo Mean GR5.0 mmHgLVOT VTI0.20 m GERI (VMAX)2.1 cm2AVA (VTI) 2.1 cm2 Mitral Valve MV E Vmax41.2 cm/sDECEL Xfai512 ms MV A Vmax83.9 cm/sP 1/2 T70 ms E/A ratio0.5MVA (PHT)3.1 cm2 TDI E/E' [id number]/E' [id number] Medial E' Peak V2.20 cm/sLateral E' Peak V3.70 cm/s Pulmonary Valve PV VTI0.32 mPV Mean GR5 mmHg Left Ventricle Left ventricular cavity size is normal. Bennie-septal hypokinesis. There is normal left ventricular w all thickness. LVEF is 40-45%. No left ventricle thrombus noted on this study. The left ventricular d iastolic function is normal. Right Ventricle The right ventricle is normal size. Right ventricular systolic function is normal. Atria The left atrial size is normal. The right atrium size is normal. Aortic Valve The aortic valve is normal in structure and function. Trace aortic regurgitation. There is no aortic valvular stenosis. Mitral Valve Mitral valve leaflets open well. There is no mitral valve regurgitation noted. There is no mitral katie ve stenosis. Tricuspid Valve The tricuspid valve is normal in structure and function. There is no tricuspid valve regurgitation no nhung. Pulmonic Valve The pulmonary valve is normal in structure and function. There is no pulmonic valvular regurgitation. Great Vessels The aortic root is normal in size. The IVC is normal in size and collapses >50% with inspiration. Pericardium No pericardial effusion. Conclusion Left ventricular cavity size is normal. LVEF is 40-45%. Bennie-septal hypokinesis. The right ventricle is normal size. The left atrial size is normal. The aortic valve is normal in structure and function. Mitral valve leaflets open well. There is no mitral valve regurgitation noted. The tricuspid valve is normal in structure and function. There is no pulmonic valvular regurgitation. The aortic root is normal in size. The IVC is normal in size and collapses >50% with inspiration. No pericardial effusion.
== END | disposition home or self-care (01) ==
LOC: SHCH 11:16
PROVIDERS: ATTEND Internal Medicine Cardiovascular Disease
DX: I10 Essential (primary) hypertension (principal); R06.00 Dyspnea, unspecified
CPT/HCPCS: 93306